=== PATIENT | female | born 1935 | race Caucasian/White ===

== ENCOUNTER 2018-03-26 15:40 | Inpatient (IN) | payer OTHER, MEDICARE ==
[~2018-03-26] VITALS: Ht 172.7 cm; Wt 81.2 kg
[~2018-03-26 15:40] MED LIST: AMLO10TA80 PO; HYDR25TA PO; LIP40 PO; METF-416 PO
[2018-03-26] MEDS ORDERED: SODIUM CHLORIDE 0.9% 1,000 ML IV ONE (16:37)
[2018-03-26 17:56] LABS: BASOPHILS % 0.1 % (0.0-2.0); HEMATOCRIT. 37.6 % (36.0-48.0); HEMOGLOBIN. 12.4 g/dL (12.0-16.0); LYMPHOCYTES % 27.9 % (20.0-50.0); MEAN CORPUSCULAR HEMOGLOBIN 31.7 pg (28.0-32.0); MEAN PLATELET VOLUME 8.3 fl (7.4-10.4); MONOCYTES % 4.1 % (2.0-8.0); NEUTROPHILS % 67.9 % (40.0-76.0); PLATELET 290 x1000/uL (130-400); RED BLOOD CELL COUNT 3.92 mill/uL (4.2-5.4); RED CELL DISTRIBUTION WIDTH 13.5 % (11.6-14.6)
[2018-03-26 18:04] LABS: CHLORIDE 100 mEq/L (98-107)
[2018-03-26 18:05] LABS: INR 1.1; PARTIAL THROMBOPLASTIN TIME 36.9 sec (23.4-31.0); PROTHROMBIN TIME 11.4 sec (9.1-11.1)
[2018-03-26 19:17] LABS: CREATINE KINASE MB FRACTION 1.7 ng/mL (0.5-3.6)
[2018-03-26] MEDS ORDERED: SODIUM CHLORIDE 0.9% 1,000 ML IV SCH (20:22)
[2018-03-26] MEDS ORDERED: ACETAMINOPHEN 325MG TABLET PO PRN (20:30)
[2018-03-26] MEDS ORDERED: HYDROCODONE/ACETAMINOPHEN 5/325MG TABLET PO PRN ×2 (20:30→21:30)
[2018-03-26] MEDS ORDERED: DOCUSATE SODIUM 100MG CAPSULE PO PRN (20:30)
[2018-03-26] MEDS ORDERED: LEVOFLOXACIN 500MG PREMIX 100 ML IV ONE (20:30)
[2018-03-26] MEDS ORDERED: ONDANSETRON HCL 4MG/2ML INJ IV PRN (20:30)
[2018-03-26] MEDS ORDERED: SODIUM CHLORIDE 0.9% 1000ML BAG (SEPSIS BOLUS) IV ONE (20:30)
[2018-03-27 05:40] LABS: BASOPHILS % 0.2 % (0.0-2.0); HEMOGLOBIN. 13.1 g/dL (12.0-16.0); LYMPHOCYTES % 30.1 % (20.0-50.0); MEAN CORPUSCULAR VOLUME 95.8 fL (81.0-99.0); MEAN PLATELET VOLUME 8.5 fl (7.4-10.4); NEUTROPHILS % 64.7 % (40.0-76.0); PLATELET 256 x1000/uL (130-400); RED BLOOD CELL COUNT 3.97 mill/uL (4.2-5.4); RED CELL DISTRIBUTION WIDTH 13.4 % (11.6-14.6)
[2018-03-27 05:50] LABS: CHLORIDE 104 mEq/L (98-107)
[2018-03-27 06:06] LABS: CREATINE KINASE 696 IU/L (26-192)
[2018-03-27] MEDS ORDERED: DEXT 5%/0.45% NACL KCL 20MEQ/L 1,000 ML IV ONE (07:00)
[2018-03-27] MEDS ORDERED: POTASSIUM CHLORIDE INJ 40 MEQ in DEXT 5% WATER 500 ML IV ONE (07:00)
[2018-03-27 08:30] VITALS: BP 141/70
[2018-03-27 09:30] VITALS: BP 141/70
[2018-03-27] MEDS: ENOXAPARIN 40MG/0.4ML SYR SUBCUT SCH (10:16)
[2018-03-27] MEDS ORDERED: DIATR MEGLU/DIATRIZOATE SOLN 30ML PO SCH (10:30)
[2018-03-27] MEDS ORDERED: MEMA5TAB7 PO (10:49)
[2018-03-27] MEDS ORDERED: LOSA1TAB37 PO (10:49)
[2018-03-27] MEDS ORDERED: LOSA50TA20 PO (10:49)
[2018-03-27] MEDS ORDERED: CLOP75TA15 PO (10:49)
[2018-03-27] MEDS ORDERED: OXCA150T29 PO (10:49)
[2018-03-27] MEDS ORDERED: METO-396 PO (10:49)
[2018-03-27] MEDS ORDERED: CLOP75TA33 PO (10:52)
[2018-03-27] MEDS ORDERED: ROSU5TAB PO (11:58)
[2018-03-27 12:00] VITALS: BP 144/65
[2018-03-27] MEDS ORDERED: DEXTROSE 50% WATER 50ML SYRINGE IV PRN (12:15)
[2018-03-27] MEDS: INSULIN LISPRO 100 UNITS/ML SUBCUT SCH ×3 (12:15→21:00)
[2018-03-27 13:05] LABS: T4 FREE 1.11 ng/dL (0.76-1.46)
[2018-03-27 16:00] VITALS: BP 140/59
[2018-03-27] MEDS: BLOOD SUGAR DIAGNOSTIC STRIP TEST SCH ×2 (16:40→21:13)
[2018-03-27 16:45] LABS: CREATINE KINASE MB FRACTION 4.9 ng/mL (0.5-3.6)
[2018-03-27] MEDS ORDERED: LEVOFLOXACIN 500MG PREMIX 100 ML IV SCH (18:00)
[2018-03-27] MEDS ORDERED: ACETAMINOPHEN 325MG TABLET PO PRN (19:30)
[2018-03-27 20:00] VITALS: BP 139/65
[2018-03-27] MEDS: IPRATROPIUM/ALBUTEROL 0.5-3(2.5)MG/3ML NEB HHN SCH (21:00)
[2018-03-27] MEDS: OXCARBAZEPINE 300MG TABLET PO SCH (21:03)
[2018-03-27] MEDS: THIAMINE HCL 100MG TABLET PO SCH (21:03)
[2018-03-27] MEDS: LEVOFLOXACIN 250MG PREMIX 50 ML IV SCH (21:04)
[2018-03-27] MEDS: PROMETHAZINE/DEXTROMETHORPHAN 6.25-15MG/5ML BOTTLE 120ML PO PRN (22:32)
[2018-03-28] VITALS: BP 125/70
[2018-03-28] MEDS ORDERED: IPRATROPIUM/ALBUTEROL 0.5-3(2.5)MG/3ML NEB HHN SCH
[2018-03-28] MEDS: IPRATROPIUM/ALBUTEROL 0.5-3(2.5)MG/3ML NEB HHN SCH ×6 (00:12→21:10)
[2018-03-28 04:00] VITALS: BP 152/68
[2018-03-28] MEDS: PROMETHAZINE/DEXTROMETHORPHAN 6.25-15MG/5ML BOTTLE 120ML PO PRN ×2 (05:26→20:38)
[2018-03-28 06:29] LABS: BASOPHILS % 0.2 % (0.0-2.0); EOSINOPHILS % 0.1 % (0.0-5.0); HEMATOCRIT. 34.6 % (36.0-48.0); HEMOGLOBIN. 11.6 g/dL (12.0-16.0); LYMPHOCYTES % 31.3 % (20.0-50.0); MEAN CORPUSCULAR HEMOGLOBIN 32.1 pg (28.0-32.0); MEAN CORPUSCULAR VOLUME 95.9 fL (81.0-99.0); NEUTROPHILS % 63.4 % (40.0-76.0); PLATELET 280 x1000/uL (130-400); RED BLOOD CELL COUNT 3.61 mill/uL (4.2-5.4); RED CELL DISTRIBUTION WIDTH 13.4 % (11.6-14.6)
[2018-03-28 06:33] LABS: CHLORIDE 102 mEq/L (98-107)
[2018-03-28 06:43] LABS: CREATINE KINASE 283 IU/L (26-192)
[2018-03-28 06:45] LABS: CREATINE KINASE MB FRACTION 2.9 ng/mL (0.5-3.6)
[2018-03-28] MEDS: INSULIN LISPRO 100 UNITS/ML SUBCUT SCH ×4 (06:52→20:36)
[2018-03-28] MEDS: BLOOD SUGAR DIAGNOSTIC STRIP TEST SCH ×4 (06:52→20:36)
[2018-03-28] MEDS: THIAMINE HCL 100MG TABLET PO SCH ×2 (09:35→17:00)
[2018-03-28] MEDS: ENOXAPARIN 40MG/0.4ML SYR SUBCUT SCH (09:35)
[2018-03-28] MEDS: OXCARBAZEPINE 300MG TABLET PO SCH ×2 (09:36→20:20)
[2018-03-28 20:00] VITALS: BP_SYST 144; BP_SYST 150; BP_DIAS 46; BP_DIAS 61
[2018-03-28] MEDS: LEVOFLOXACIN 250MG PREMIX 50 ML IV SCH (20:21)
[2018-03-29] VITALS: BP 137/43
[2018-03-29] MEDS: IPRATROPIUM/ALBUTEROL 0.5-3(2.5)MG/3ML NEB HHN SCH ×5 (01:56→22:01)
[2018-03-29 04:00] VITALS: BP 152/57
[2018-03-29] MEDS: INSULIN LISPRO 100 UNITS/ML SUBCUT SCH ×4 (05:54→20:31)
[2018-03-29] MEDS: BLOOD SUGAR DIAGNOSTIC STRIP TEST SCH ×4 (05:54→20:31)
[2018-03-29 06:29] LABS: BASOPHILS % 0.1 % (0.0-2.0); EOSINOPHILS % 0.1 % (0.0-5.0); HEMATOCRIT. 32.4 % (36.0-48.0); HEMOGLOBIN. 10.9 g/dL (12.0-16.0); LYMPHOCYTES % 27.8 % (20.0-50.0); MEAN CORPUSCULAR HEMOGLOBIN 32.1 pg (28.0-32.0); MEAN CORPUSCULAR VOLUME 95.1 fL (81.0-99.0); MEAN PLATELET VOLUME 7.5 fl (7.4-10.4); MONOCYTES % 4.7 % (2.0-8.0); NEUTROPHILS % 67.3 % (40.0-76.0); PLATELET 276 x1000/uL (130-400); RED CELL DISTRIBUTION WIDTH 13.5 % (11.6-14.6)
[2018-03-29 07:01] LABS: CHLORIDE 107 mEq/L (98-107)
[2018-03-29 08:00] VITALS: BP 141/46
[2018-03-29] MEDS: THIAMINE HCL 100MG TABLET PO SCH ×2 (08:49→18:23)
[2018-03-29] MEDS: OXCARBAZEPINE 300MG TABLET PO SCH ×2 (09:00→20:30)
[2018-03-29] MEDS ORDERED: POTASSIUM CHLORIDE 20MEQ/PACKET PO NR (09:00)
[2018-03-29] MEDS: ENOXAPARIN 40MG/0.4ML SYR SUBCUT SCH (09:01)
[2018-03-29 12:00] VITALS: BP 151/60
[2018-03-29 16:00] VITALS: BP 138/61
[2018-03-29 20:00] VITALS: BP 162/57
[2018-03-29] MEDS: LEVOFLOXACIN 250MG PREMIX 50 ML IV SCH (20:31)
[2018-03-30] VITALS (7 sets, daily range): BP systolic 133–160; BP diastolic 55–100
[2018-03-30] MEDS: IPRATROPIUM/ALBUTEROL 0.5-3(2.5)MG/3ML NEB HHN SCH ×5 (01:23→16:27)
[2018-03-30] MEDS: INSULIN LISPRO 100 UNITS/ML SUBCUT SCH ×3 (05:36→17:15)
[2018-03-30] MEDS: BLOOD SUGAR DIAGNOSTIC STRIP TEST SCH ×3 (05:36→17:17)
[2018-03-30] MEDS: PROMETHAZINE/DEXTROMETHORPHAN 6.25-15MG/5ML BOTTLE 120ML PO PRN (05:39)
[2018-03-30 06:11] LABS: BASOPHILS % 0.1 % (0.0-2.0); EOSINOPHILS % 0.6 % (0.0-5.0); HEMATOCRIT. 31.2 % (36.0-48.0); HEMOGLOBIN. 10.6 g/dL (12.0-16.0); LYMPHOCYTES % 28.9 % (20.0-50.0); MEAN CORPUSCULAR HEMOGLOBIN 32.4 pg (28.0-32.0); MEAN CORPUSCULAR VOLUME 95.6 fL (81.0-99.0); MEAN PLATELET VOLUME 7.7 fl (7.4-10.4); MONOCYTES % 4.7 % (2.0-8.0); NEUTROPHILS % 65.7 % (40.0-76.0); PLATELET 272 x1000/uL (130-400); RED BLOOD CELL COUNT 3.26 mill/uL (4.2-5.4); RED CELL DISTRIBUTION WIDTH 13.6 % (11.6-14.6)
[2018-03-30 06:35] LABS: CHLORIDE 106 mEq/L (98-107)
[2018-03-30] MEDS ORDERED: AMLODIPINE 5MG TABLET PO SCH (09:00)
[2018-03-30] MEDS ORDERED: POTASSIUM CHLORIDE 20MEQ/PACKET PO SCH (09:00)
[2018-03-30] MEDS: OXCARBAZEPINE 300MG TABLET PO SCH (10:28)
[2018-03-30] MEDS: THIAMINE HCL 100MG TABLET PO SCH ×2 (10:28→17:45)
[2018-03-30] MEDS: ENOXAPARIN 40MG/0.4ML SYR SUBCUT SCH (10:29)
[2018-03-30] MEDS ORDERED: LEVOFLOXACIN 250MG TABLET PO SCH (21:00)
== END 2018-03-30 18:35 | disposition home health service (06) | DRG 73 ==
LOC: ER 15:40 → EDBEDREQ 17:42 → EDBEDREQSVC 17:42 → 5WST 20:39 → EDBEDREQTM 20:45 → EDBEDREQ 20:45 → ENRESERV 03-27 07:11
PROVIDERS: ADMIT Internal Medicine Nephrology; ATTEND Internal Medicine Nephrology
DX: G90.8 Other disorders of autonomic nervous system (principal); E43 Unspecified severe protein-calorie malnutrition; J18.0 Bronchopneumonia, unspecified organism; E87.2 Acidosis; J98.11 Atelectasis; M62.82 Rhabdomyolysis; R65.10 Systemic inflammatory response syndrome (SIRS) of non-infectious origin without acute organ dysfunction; G40.909 Epilepsy, unspecified, not intractable, without status epilepticus; E11.9 Type 2 diabetes mellitus without complications; E78.5 Hyperlipidemia, unspecified; E87.6 Hypokalemia; F03.90 Unspecified dementia, unspecified severity, without behavioral disturbance, psychotic disturbance, mood disturbance, and anxiety; I25.10 Atherosclerotic heart disease of native coronary artery without angina pectoris; I35.0 Nonrheumatic aortic (valve) stenosis; I10 Essential (primary) hypertension; J01.90 Acute sinusitis, unspecified; W18.39XA Other fall on same level, initial encounter; I95.9 Hypotension, unspecified; R74.0 Nonspecific elevation of levels of transaminase and lactic acid dehydrogenase [LDH]; M13.0 Polyarthritis, unspecified; Z79.899 Other long term (current) drug therapy; Z88.0 Allergy status to penicillin; Z90.710 Acquired absence of both cervix and uterus; Z95.5 Presence of coronary angioplasty implant and graft; Y93.89 Activity, other specified; Y92.89 Other specified places as the place of occurrence of the external cause; Y99.8 Other external cause status; Z68.27 Body mass index [BMI] 27.0-27.9, adult
CPT/HCPCS: 36415; 71045; 72170; 74176; 76700; 80048; 80061; 82550; 82553; 82962; 83036; 83605; 83735; 83880; 84100; 84132; 84145; 84439; 84443; 84484; 85379; 86850; 86900; 87804; 93005; 93306; 93880; 93970; 94640; 96361; 96365; 96366; 97116; 97162; 97166; 99285; C1893; J1650; J1956; J3480; J7030; J7050; J7060; J7620; Q9963

== ENCOUNTER 2018-05-15 08:07 | Inpatient (IN) | payer MEDICARE ==
[~2018-05-15] VITALS: Ht 172.7 cm; Wt 82.2 kg
[~2018-05-15 08:07] MED LIST changes: +CLOP75TA33 PO; -HYDR25TA PO; -LIP40 PO; +LOSA1TAB37 PO; +MEMA5TAB7 PO; -METF-416 PO; +METO-396 PO; +OXCA150T29 PO; +ROSU5TAB PO
[2018-05-15] MEDS ORDERED: SODIUM CHLORIDE 0.9% 1000ML BAG (SEPSIS BOLUS) IV ONE (08:30)
[2018-05-15 08:48] LABS: BASOPHILS % 0.2 % (0.0-2.0); HEMATOCRIT. 38.6 % (36.0-48.0); HEMOGLOBIN. 12.9 g/dL (12.0-16.0); LYMPHOCYTES % 25.6 % (20.0-50.0); MEAN CORPUSCULAR VOLUME 95.5 fL (81.0-99.0); MEAN PLATELET VOLUME 8.7 fl (7.4-10.4); MONOCYTES % 2.5 % (2.0-8.0); NEUTROPHILS % 71.7 % (40.0-76.0); PLATELET 207 x1000/uL (130-400); RED BLOOD CELL COUNT 4.04 mill/uL (4.2-5.4); RED CELL DISTRIBUTION WIDTH 14.5 % (11.6-14.6)
[2018-05-15 08:52] LABS: CHLORIDE 107 mEq/L (98-107)
[2018-05-15 08:53] LABS: INR 1.1; PROTHROMBIN TIME 11.1 sec (9.6-11.0)
[2018-05-15] MEDS ORDERED: MEROPENEM 1,000 MG in SODIUM CHLORIDE 0.9% 100 ML IV ONE (09:15)
[2018-05-15] MEDS ORDERED: VANCOMYCIN 1 G PREMIX 200 ML IV ONE (09:15)
[2018-05-15] MEDS ORDERED: LEVOFLOXACIN 500MG PREMIX 100 ML IV SCH ×3 (11:00→20:00)
[2018-05-15] MEDS ORDERED: ACETAMINOPHEN 325MG TABLET PO PRN (11:00)
[2018-05-15] MEDS ORDERED: ONDANSETRON HCL 4MG/2ML INJ IV PRN (11:00)
[2018-05-15] MEDS ORDERED: HYDROMORPHONE HCL/PF 2MG/ML CPJ IV PRN (11:00)
[2018-05-15] MEDS ORDERED: CLONIDINE 0.1MG TABLET PO PRN (11:00)
[2018-05-15 11:40] LABS: CLARITY URINE CLOUDY (CLEAR); COLOR URINE YELLOW (YELLOW); KETONES URINE NEGATIVE (NEGATIVE); LEUKOCYTE ESTERASE URINE 3+ (NEGATIVE); NITRITE URINE POSITIVE (NEGATIVE); OCCULT BLOOD URINE 1+ (NEGATIVE); PH URINE 5.5 (4.5-8.0); PROTEIN URINE 1+ (NEGATIVE); SPECIFIC GRAVITY URINE 1.014 (1.005-1.030); UROBILINOGEN URINE 0.2 E.U./dL (0.2-1.0)
[2018-05-15] MEDS: PANTOPRAZOLE SODIUM 40 MG/VIAL IV SCH (13:07)
[2018-05-15] MEDS: DEXT 5%/0.45% NACL 1000ML 1,000 ML IV SCH (13:14)
[2018-05-15] MEDS ORDERED: LORAZEPAM 2MG/ML CPJ IV PRN (19:45)
[2018-05-15 20:00] VITALS: BP 157/63
[2018-05-15] MEDS ORDERED: POTASSIUM CHLORIDE INJ 40 MEQ in DEXT 5% WATER 250 ML IV SCH (20:00)
[2018-05-15 20:05] VITALS: BP 157/63
[2018-05-15] MEDS: IPRATROPIUM/ALBUTEROL 0.5-3(2.5)MG/3ML NEB INH SCH (21:57)
[2018-05-15 22:00] VITALS: BP 132/61
[2018-05-15] MEDS: ENOXAPARIN 40MG/0.4ML SYR SUBCUT SCH (22:01)
[2018-05-15] MEDS: OXCARBAZEPINE 300MG TABLET PO SCH (22:02)
[2018-05-16] VITALS (12 sets, daily range): BP systolic 128–162; BP diastolic 48–129
[2018-05-16] MEDS: DEXT 5%/0.45% NACL 1000ML 1,000 ML IV SCH ×2 (01:07→18:33)
[2018-05-16] MEDS: IPRATROPIUM/ALBUTEROL 0.5-3(2.5)MG/3ML NEB INH SCH ×3 (01:56→21:39)
[2018-05-16] MEDS: VANCOMYCIN 1 G PREMIX 200 ML IV SCH ×2 (04:50→22:43)
[2018-05-16 07:00] LABS: CHLORIDE 108 mEq/L (98-107)
[2018-05-16 07:15] LABS: BASOPHILS % 0.3 % (0.0-2.0); EOSINOPHILS % 0.1 % (0.0-5.0); HEMATOCRIT. 33.9 % (36.0-48.0); HEMOGLOBIN. 11.6 g/dL (12.0-16.0); LYMPHOCYTES % 24.5 % (20.0-50.0); MEAN CORPUSCULAR HEMOGLOBIN 32.8 pg (28.0-32.0); MEAN CORPUSCULAR VOLUME 95.8 fL (81.0-99.0); MEAN PLATELET VOLUME 8.7 fl (7.4-10.4); NEUTROPHILS % 70.1 % (40.0-76.0); PLATELET 156 x1000/uL (130-400); RED BLOOD CELL COUNT 3.54 mill/uL (4.2-5.4); RED CELL DISTRIBUTION WIDTH 14.6 % (11.6-14.6)
[2018-05-16 07:18] LABS: LDL CHOLESTEROL 37 mg/dL (5-100)
[2018-05-16 07:19] LABS: HDL CHOLESTEROL 54 mg/dL (40-59)
[2018-05-16] MEDS ORDERED: PNEUMOCOCCAL 23-VAL P-SAC VAC 0.5 ML IM ONE (08:00)
[2018-05-16] MEDS ORDERED: POTASSIUM CHLORIDE 20MEQ/PACKET PO NR (08:15)
[2018-05-16] MEDS: MEMANTINE HCL 5MG TABLET PO SCH (09:27)
[2018-05-16] MEDS: PANTOPRAZOLE SODIUM 40 MG/VIAL IV SCH (09:27)
[2018-05-16] MEDS: METOPROLOL TARTRATE 25MG TABLET PO SCH (09:29)
[2018-05-16] MEDS: LOSARTAN POTASSIUM 100 MG TABLET PO SCH (09:30)
[2018-05-16] MEDS: OXCARBAZEPINE 300MG TABLET PO SCH ×2 (09:30→21:12)
[2018-05-16] MEDS: AMLODIPINE 10MG TABLET PO SCH (09:30)
[2018-05-16] MEDS: CLOPIDOGREL 75MG TABLET PO SCH (09:30)
[2018-05-16 13:54] LABS: T4 FREE 0.86 ng/dL (0.76-1.46)
[2018-05-16 13:57] LABS: CREATINE KINASE MB FRACTION 1.9 ng/mL (0.5-3.6)
[2018-05-16] MEDS: LEVOFLOXACIN 250MG PREMIX 50 ML IV SCH (20:13)
[2018-05-16] MEDS: ENOXAPARIN 40MG/0.4ML SYR SUBCUT SCH (20:13)
[2018-05-16] MEDS ORDERED: ATORVASTATIN CALCIUM 10MG TABLET PO SCH (21:00)
[2018-05-16 23:54] LABS: CREATINE KINASE MB FRACTION 1.1 ng/mL (0.5-3.6)
[2018-05-17] VITALS (15 sets, daily range): BP systolic 122–198; BP diastolic 53–98
[2018-05-17] MEDS: DEXT 5%/0.45% NACL 1000ML 1,000 ML IV SCH ×2 (02:54→21:26)
[2018-05-17] MEDS: IPRATROPIUM/ALBUTEROL 0.5-3(2.5)MG/3ML NEB INH SCH ×4 (03:33→20:43)
[2018-05-17 06:30] LABS: CHLORIDE 108 mEq/L (98-107)
[2018-05-17 06:31] LABS: BASOPHILS % 0.3 % (0.0-2.0); EOSINOPHILS % 0.4 % (0.0-5.0); HEMATOCRIT. 36.9 % (36.0-48.0); HEMOGLOBIN. 12.4 g/dL (12.0-16.0); LYMPHOCYTES % 33.3 % (20.0-50.0); MEAN CORPUSCULAR HEMOGLOBIN 32.1 pg (28.0-32.0); MEAN CORPUSCULAR VOLUME 95.4 fL (81.0-99.0); MEAN PLATELET VOLUME 9.1 fl (7.4-10.4); PLATELET 148 x1000/uL (130-400); RED BLOOD CELL COUNT 3.87 mill/uL (4.2-5.4); RED CELL DISTRIBUTION WIDTH 14.3 % (11.6-14.6)
[2018-05-17 06:52] LABS: CREATINE KINASE MB FRACTION 1.1 ng/mL (0.5-3.6)
[2018-05-17 07:04] LABS: CREATINE KINASE 1753 IU/L (26-192)
[2018-05-17] MEDS: METOPROLOL TARTRATE 25MG TABLET PO SCH (09:20)
[2018-05-17] MEDS: LOSARTAN POTASSIUM 100 MG TABLET PO SCH (09:20)
[2018-05-17] MEDS: POTASSIUM CHLORIDE 20MEQ/PACKET PO SCH (09:20)
[2018-05-17] MEDS: FAMOTIDINE 20MG TABLET PO SCH ×2 (09:20→21:25)
[2018-05-17] MEDS: AMLODIPINE 10MG TABLET PO SCH (09:20)
[2018-05-17] MEDS: OXCARBAZEPINE 300MG TABLET PO SCH ×2 (09:21→21:25)
[2018-05-17] MEDS: MEMANTINE HCL 5MG TABLET PO SCH (09:21)
[2018-05-17] MEDS: CLOPIDOGREL 75MG TABLET PO SCH (09:21)
[2018-05-17] MEDS ORDERED: POTASSIUM PHOS,M-BASIC-D-BASIC 10 MMOL in DEXT 5% WATER 246.6667 ML IV ONE (10:00)
[2018-05-17] MEDS ORDERED: MAGNESIUM 2 G PREMIX 50 ML IV NR (12:00)
[2018-05-17] MEDS: LEVOFLOXACIN 250MG PREMIX 50 ML IV SCH (20:09)
[2018-05-17] MEDS: ENOXAPARIN 40MG/0.4ML SYR SUBCUT SCH (20:09)
[2018-05-18] VITALS (14 sets, daily range): BP systolic 140–185; BP diastolic 34–98
[2018-05-18] MEDS: IPRATROPIUM/ALBUTEROL 0.5-3(2.5)MG/3ML NEB INH SCH ×4 (00:34→21:11)
[2018-05-18] MEDS: VANCOMYCIN 1 G PREMIX 200 ML IV SCH ×2 (04:55→17:03)
[2018-05-18 06:51] LABS: BASOPHILS % 0.5 % (0.0-2.0); EOSINOPHILS % 1.7 % (0.0-5.0); HEMATOCRIT. 36.5 % (36.0-48.0); HEMOGLOBIN. 12.3 g/dL (12.0-16.0); LYMPHOCYTES % 27.6 % (20.0-50.0); MEAN CORPUSCULAR VOLUME 94.9 fL (81.0-99.0); MEAN PLATELET VOLUME 8.9 fl (7.4-10.4); NEUTROPHILS % 64.2 % (40.0-76.0); PLATELET 144 x1000/uL (130-400); RED BLOOD CELL COUNT 3.84 mill/uL (4.2-5.4); RED CELL DISTRIBUTION WIDTH 14.2 % (11.6-14.6)
[2018-05-18 07:11] LABS: CHLORIDE 108 mEq/L (98-107)
[2018-05-18 07:27] LABS: PHOSPHORUS 2.6 mg/dL (2.5-4.9)
[2018-05-18] MEDS ORDERED: SORBITOL 70% SOLN 30ML PO SCH (07:30)
[2018-05-18] MEDS: POTASSIUM CHLORIDE 20MEQ/PACKET PO SCH ×3 (09:00→17:20)
[2018-05-18] MEDS: LOSARTAN POTASSIUM 100 MG TABLET PO SCH (09:45)
[2018-05-18] MEDS: MEMANTINE HCL 5MG TABLET PO SCH (09:46)
[2018-05-18] MEDS: METOPROLOL TARTRATE 25MG TABLET PO SCH (09:46)
[2018-05-18] MEDS: FAMOTIDINE 20MG TABLET PO SCH ×2 (09:47→21:42)
[2018-05-18] MEDS: CLOPIDOGREL 75MG TABLET PO SCH (09:47)
[2018-05-18] MEDS: AMLODIPINE 10MG TABLET PO SCH (09:47)
[2018-05-18] MEDS: OXCARBAZEPINE 300MG TABLET PO SCH ×2 (09:48→21:42)
[2018-05-18] MEDS: DOCUSATE SODIUM 100MG CAPSULE PO PRN (09:51)
[2018-05-18] MEDS: DEXT 5%/0.45% NACL 1000ML 1,000 ML IV SCH (10:09)
[2018-05-18 11:29] LABS: CREATINE KINASE 1727 IU/L (26-192)
[2018-05-18] MEDS ORDERED: BISACODYL 10MG SUPP PR SCH (11:45)
[2018-05-18] MEDS: ENOXAPARIN 40MG/0.4ML SYR SUBCUT SCH (20:00)
[2018-05-19] VITALS (15 sets, daily range): BP systolic 129–174; BP diastolic 55–76
[2018-05-19] MEDS: VANCOMYCIN 1 G PREMIX 200 ML IV SCH (02:00)
[2018-05-19] MEDS: IPRATROPIUM/ALBUTEROL 0.5-3(2.5)MG/3ML NEB INH SCH ×5 (02:09→20:20)
[2018-05-19] MEDS: DEXT 5%/0.45% NACL 1000ML 1,000 ML IV SCH ×4 (04:13→20:53)
[2018-05-19 05:25] LABS: BASOPHILS % 0.2 % (0.0-2.0); EOSINOPHILS % 0.9 % (0.0-5.0); HEMATOCRIT. 39.9 % (36.0-48.0); HEMOGLOBIN. 13.4 g/dL (12.0-16.0); LYMPHOCYTES % 27.5 % (20.0-50.0); MEAN CORPUSCULAR HEMOGLOBIN 32.2 pg (28.0-32.0); MEAN CORPUSCULAR VOLUME 95.7 fL (81.0-99.0); MEAN PLATELET VOLUME 8.9 fl (7.4-10.4); MONOCYTES % 5.2 % (2.0-8.0); NEUTROPHILS % 66.2 % (40.0-76.0); PLATELET 157 x1000/uL (130-400); RED BLOOD CELL COUNT 4.17 mill/uL (4.2-5.4)
[2018-05-19 06:52] LABS: CHLORIDE 106 mEq/L (98-107)
[2018-05-19 07:03] LABS: CREATINE KINASE 855 IU/L (26-192)
[2018-05-19] MEDS: POTASSIUM CHLORIDE 20MEQ/PACKET PO SCH ×2 (07:45→16:56)
[2018-05-19] MEDS: LOSARTAN POTASSIUM 100 MG TABLET PO SCH (07:45)
[2018-05-19] MEDS: MEMANTINE HCL 5MG TABLET PO SCH (07:46)
[2018-05-19] MEDS: CLOPIDOGREL 75MG TABLET PO SCH (07:46)
[2018-05-19] MEDS: OXCARBAZEPINE 300MG TABLET PO SCH ×2 (07:46→21:12)
[2018-05-19] MEDS: AMLODIPINE 10MG TABLET PO SCH (07:46)
[2018-05-19] MEDS: FAMOTIDINE 20MG TABLET PO SCH ×2 (07:46→21:12)
[2018-05-19] MEDS: DOCUSATE SODIUM 100MG CAPSULE PO PRN (07:46)
[2018-05-19] MEDS: METOPROLOL TARTRATE 25MG TABLET PO SCH (07:47)
[2018-05-19] MEDS: ENOXAPARIN 40MG/0.4ML SYR SUBCUT SCH (21:12)
[2018-05-19] MEDS: SULFAMETHOXAZOLE/TRIMETHOPRIM 800/160MG TABLET PO SCH (21:12)
[2018-05-20] VITALS (16 sets, daily range): BP systolic 127–176; BP diastolic 51–83
[2018-05-20] MEDS: IPRATROPIUM/ALBUTEROL 0.5-3(2.5)MG/3ML NEB INH SCH ×4 (02:22→20:28)
[2018-05-20] MEDS: DEXT 5%/0.45% NACL 1000ML 1,000 ML IV SCH ×3 (04:34→20:53)
[2018-05-20 06:29] LABS: BASOPHILS % 0.7 % (0.0-2.0); EOSINOPHILS % 2.1 % (0.0-5.0); HEMATOCRIT. 36.2 % (36.0-48.0); LYMPHOCYTES % 37.2 % (20.0-50.0); MEAN CORPUSCULAR VOLUME 96.4 fL (81.0-99.0); MONOCYTES % 6.5 % (2.0-8.0); NEUTROPHILS % 53.5 % (40.0-76.0); PLATELET 165 x1000/uL (130-400); RED BLOOD CELL COUNT 3.76 mill/uL (4.2-5.4); RED CELL DISTRIBUTION WIDTH 14.2 % (11.6-14.6)
[2018-05-20] MEDS: SULFAMETHOXAZOLE/TRIMETHOPRIM 800/160MG TABLET PO SCH ×2 (08:45→20:24)
[2018-05-20] MEDS: CLOPIDOGREL 75MG TABLET PO SCH (08:45)
[2018-05-20] MEDS: MEMANTINE HCL 5MG TABLET PO SCH (08:45)
[2018-05-20] MEDS: POTASSIUM CHLORIDE 20MEQ/PACKET PO SCH ×2 (08:46→17:02)
[2018-05-20] MEDS: OXCARBAZEPINE 300MG TABLET PO SCH ×2 (08:46→20:26)
[2018-05-20] MEDS: METOPROLOL TARTRATE 25MG TABLET PO SCH (08:47)
[2018-05-20] MEDS: AMLODIPINE 10MG TABLET PO SCH (08:47)
[2018-05-20] MEDS: FAMOTIDINE 20MG TABLET PO SCH ×2 (08:47→20:24)
[2018-05-20] MEDS: LOSARTAN POTASSIUM 100 MG TABLET PO SCH (08:47)
[2018-05-20] MEDS: ENOXAPARIN 40MG/0.4ML SYR SUBCUT SCH (20:23)
[2018-05-21] VITALS (12 sets, daily range): BP systolic 93–163; BP diastolic 53–77
[2018-05-21] MEDS: IPRATROPIUM/ALBUTEROL 0.5-3(2.5)MG/3ML NEB INH SCH ×2 (00:56→15:45)
[2018-05-21] MEDS: DEXT 5%/0.45% NACL 1000ML 1,000 ML IV SCH (04:52)
[2018-05-21] MEDS: CLOPIDOGREL 75MG TABLET PO SCH (08:43)
[2018-05-21] MEDS: POTASSIUM CHLORIDE 20MEQ/PACKET PO SCH ×2 (08:43→16:46)
[2018-05-21] MEDS: FAMOTIDINE 20MG TABLET PO SCH ×2 (08:43→20:04)
[2018-05-21] MEDS: AMLODIPINE 10MG TABLET PO SCH (08:45)
[2018-05-21] MEDS: MEMANTINE HCL 5MG TABLET PO SCH (08:45)
[2018-05-21] MEDS: LOSARTAN POTASSIUM 100 MG TABLET PO SCH (08:45)
[2018-05-21] MEDS: METOPROLOL TARTRATE 25MG TABLET PO SCH (08:45)
[2018-05-21] MEDS: OXCARBAZEPINE 300MG TABLET PO SCH ×2 (08:46→20:05)
[2018-05-21] MEDS ORDERED: LACTULOSE 20G/30ML UDC PO PRN (09:00)
[2018-05-21] MEDS: ENOXAPARIN 40MG/0.4ML SYR SUBCUT SCH (20:04)
[2018-05-22] VITALS (7 sets, daily range): BP systolic 109–168; BP diastolic 55–88
[2018-05-22 06:33] LABS: BASOPHILS % 0.7 % (0.0-2.0); HEMATOCRIT. 35.5 % (36.0-48.0); LYMPHOCYTES % 41.1 % (20.0-50.0); MEAN CORPUSCULAR HEMOGLOBIN 32.5 pg (28.0-32.0); MEAN CORPUSCULAR VOLUME 96.3 fL (81.0-99.0); MEAN PLATELET VOLUME 8.9 fl (7.4-10.4); MONOCYTES % 7.6 % (2.0-8.0); NEUTROPHILS % 48.6 % (40.0-76.0); PLATELET 185 x1000/uL (130-400); RED BLOOD CELL COUNT 3.68 mill/uL (4.2-5.4); RED CELL DISTRIBUTION WIDTH 14.6 % (11.6-14.6)
[2018-05-22] MEDS: POTASSIUM CHLORIDE 20MEQ/PACKET PO SCH (08:00)
[2018-05-22] MEDS: LOSARTAN POTASSIUM 100 MG TABLET PO SCH (09:06)
[2018-05-22] MEDS: CLOPIDOGREL 75MG TABLET PO SCH (09:06)
[2018-05-22] MEDS: METOPROLOL TARTRATE 25MG TABLET PO SCH (09:07)
[2018-05-22] MEDS: OXCARBAZEPINE 300MG TABLET PO SCH ×2 (09:07→20:44)
[2018-05-22] MEDS: MEMANTINE HCL 5MG TABLET PO SCH (09:07)
[2018-05-22] MEDS: FAMOTIDINE 20MG TABLET PO SCH (09:07)
[2018-05-22] MEDS: AMLODIPINE 10MG TABLET PO SCH (09:08)
[2018-05-22] MEDS: IPRATROPIUM/ALBUTEROL 0.5-3(2.5)MG/3ML NEB INH SCH ×3 (09:45→20:54)
[2018-05-22] MEDS: ENOXAPARIN 40MG/0.4ML SYR SUBCUT SCH (20:44)
[2018-05-23] MEDS: IPRATROPIUM/ALBUTEROL 0.5-3(2.5)MG/3ML NEB INH SCH ×4 (02:06→20:57)
[2018-05-23 04:00] VITALS: BP 136/80
[2018-05-23 08:00] VITALS: BP 130/68
[2018-05-23] MEDS: METOPROLOL TARTRATE 25MG TABLET PO SCH (08:50)
[2018-05-23] MEDS: AMLODIPINE 10MG TABLET PO SCH (09:01)
[2018-05-23] MEDS: MEMANTINE HCL 5MG TABLET PO SCH (09:01)
[2018-05-23] MEDS: CLOPIDOGREL 75MG TABLET PO SCH (09:01)
[2018-05-23] MEDS: LOSARTAN POTASSIUM 100 MG TABLET PO SCH (09:01)
[2018-05-23] MEDS: FAMOTIDINE 20MG TABLET PO SCH (09:01)
[2018-05-23] MEDS: OXCARBAZEPINE 300MG TABLET PO SCH ×2 (09:07→20:20)
[2018-05-23 20:00] VITALS: BP 105/67
[2018-05-23] MEDS: ENOXAPARIN 40MG/0.4ML SYR SUBCUT SCH (20:20)
[2018-05-23 22:50] VITALS: BP 135/51
[2018-05-24] VITALS (7 sets, daily range): BP systolic 104–152; BP diastolic 50–100
[2018-05-24] MEDS: IPRATROPIUM/ALBUTEROL 0.5-3(2.5)MG/3ML NEB INH SCH ×2 (02:00→19:56)
[2018-05-24] MEDS: AMLODIPINE 10MG TABLET PO SCH (09:20)
[2018-05-24] MEDS: MEMANTINE HCL 5MG TABLET PO SCH (09:20)
[2018-05-24] MEDS: FAMOTIDINE 20MG TABLET PO SCH (09:21)
[2018-05-24] MEDS: CLOPIDOGREL 75MG TABLET PO SCH (09:21)
[2018-05-24] MEDS: OXCARBAZEPINE 300MG TABLET PO SCH ×2 (09:21→20:37)
[2018-05-24] MEDS: LOSARTAN POTASSIUM 100 MG TABLET PO SCH (09:21)
[2018-05-24] MEDS: ENOXAPARIN 40MG/0.4ML SYR SUBCUT SCH (20:36)
== END 2018-05-24 22:00 | DRG 871 ==
LOC: ER 08:33 → 3WST 10:35 → EDBEDREQTM 10:36 → EDBEDREQ 10:36 → ENRESERV 14:24 → CANRESERV 14:24 → ENRESERV 17:57 → 3WST 19:54 → 8WST 05-22 00:09
PROVIDERS: ADMIT Internal Medicine Nephrology; ATTEND Internal Medicine Nephrology
PROC: 4A00X4Z Measurement of Central Nervous Electrical Activity, External Approach (ICD-10-PCS; principal; 2018-05-20)
DX: A41.9 Sepsis, unspecified organism (principal); G93.41 Metabolic encephalopathy; N39.0 Urinary tract infection, site not specified; B95.7 Other staphylococcus as the cause of diseases classified elsewhere; G40.909 Epilepsy, unspecified, not intractable, without status epilepticus; E86.9 Volume depletion, unspecified; F03.90 Unspecified dementia, unspecified severity, without behavioral disturbance, psychotic disturbance, mood disturbance, and anxiety; Z60.2 Problems related to living alone; I10 Essential (primary) hypertension; Z86.73 Personal history of transient ischemic attack (TIA), and cerebral infarction without residual deficits; Z88.0 Allergy status to penicillin; Z79.899 Other long term (current) drug therapy
CPT/HCPCS: 36415; 71045; 74176; 80048; 80061; 80202; 82550; 82553; 82962; 83036; 83605; 83735; 83880; 84100; 84132; 84145; 84439; 84443; 84484; 85379; 85651; 86140; 87077; 87186; 93005; 93306; 93970; 94640; 96365; 97116; 97162; 97166; 97530; 99291; C9113; J1650; J1956; J2185; J3370; J3475; J3480; J3490; J7030; J7040; J7050; J7060; J7620; A4315

== ENCOUNTER 2018-09-05 11:18 | Emergency (ER) | payer MEDICARE ==
[~2018-09-05] VITALS: Ht 160 cm; Wt 75.0 kg
[~2018-09-05 11:18] MED LIST changes: -LOSA1TAB37 PO; -ROSU5TAB PO
[2018-09-05] MEDS ORDERED: LEVOFLOXACIN 500MG PREMIX 100 ML IV ONE (11:30)
[2018-09-05] MEDS ORDERED: SODIUM CHLORIDE 0.9% 1,000 ML IV ONE (11:30)
[2018-09-05] MEDS ORDERED: CLINDAMYCIN 300 MG in DEXTROSE 5% WATER 50 ML IV ONE (11:45)
[2018-09-05 12:13] LABS: BASOPHILS % 0.4 % (0.0-2.0); EOSINOPHILS % 0.6 % (0.0-5.0); HEMOGLOBIN. 13.2 g/dL (12.0-16.0); LYMPHOCYTES % 36.1 % (20.0-50.0); MEAN CORPUSCULAR HEMOGLOBIN 32.4 pg (28.0-32.0); MEAN CORPUSCULAR VOLUME 95.9 fL (81.0-99.0); MEAN PLATELET VOLUME 8.8 fl (7.4-10.4); NEUTROPHILS % 56.9 % (40.0-76.0); PLATELET 201 x1000/uL (130-400); RED BLOOD CELL COUNT 4.06 mill/uL (4.2-5.4); RED CELL DISTRIBUTION WIDTH 14.1 % (11.6-14.6)
[2018-09-05 12:31] LABS: CHLORIDE 106 mEq/L (98-107); PROTHROMBIN TIME 10.5 sec (9.6-11.0)
[2018-09-05] MEDS ORDERED: SULFAMETHOXAZOLE/TRIMETHOPRIM 800/160MG TABLET PO ONE (13:15)
[2018-09-05 13:39] VITALS: BP 136/68
== END 2018-09-05 13:39 | disposition home or self-care (01) ==
LOC: ER 11:18
DX: L03.211 Cellulitis of face (principal); F03.90 Unspecified dementia, unspecified severity, without behavioral disturbance, psychotic disturbance, mood disturbance, and anxiety; I10 Essential (primary) hypertension; Z86.73 Personal history of transient ischemic attack (TIA), and cerebral infarction without residual deficits; Z88.0 Allergy status to penicillin; Z79.899 Other long term (current) drug therapy; W01.10XA Fall on same level from slipping, tripping and stumbling with subsequent striking against unspecified object, initial encounter; Y93.89 Activity, other specified; Y92.89 Other specified places as the place of occurrence of the external cause; Y99.8 Other external cause status
CPT/HCPCS: 36415; 80053; 85025; 85610; 87040; 93005; 96365; 99284; J3490; J7030; J7060

== ENCOUNTER → 2019-01-08 | Outpatient (CLI) | payer MEDICARE | END | disposition home or self-care (01) | LOC: RAD 12:40 | PROVIDERS: ATTEND Family Medicine | DX: J18.9 Pneumonia, unspecified organism (principal) | CPT/HCPCS: 71046 ==

== ENCOUNTER 2019-03-10 09:32 | Inpatient (IN) | payer MEDICARE ==
[~2019-03-10] VITALS: Ht 160 cm; Wt 70.8 kg
[2019-03-10 10:18] LABS: BASOPHILS % 0.3 % (0.0-2.0); HEMOGLOBIN. 13.9 g/dL (12.0-16.0); LYMPHOCYTES % 31.5 % (20.0-50.0); MEAN CORPUSCULAR HEMOGLOBIN 32.2 pg (28.0-32.0); MEAN CORPUSCULAR VOLUME 96.8 fL (81.0-99.0); MEAN PLATELET VOLUME 9.1 fl (7.4-10.4); MONOCYTES % 2.6 % (2.0-8.0); NEUTROPHILS % 65.6 % (40.0-76.0); PLATELET 206 x1000/uL (130-400); RED BLOOD CELL COUNT 4.34 mill/uL (4.2-5.4); RED CELL DISTRIBUTION WIDTH 13.5 % (11.6-14.6)
[2019-03-10 10:25] LABS: CHLORIDE 106 mEq/L (98-107); PROTHROMBIN TIME 10.7 sec (9.6-11.0)
[2019-03-10 10:29] LABS: ETHANOL BLOOD < 10 mg/dL
[2019-03-10 10:32] LABS: LDL CHOLESTEROL 57 mg/dL (5-100)
[2019-03-10] MEDS ORDERED: ASPIRIN 325MG TABLET PO ONE (12:15)
[2019-03-10] MEDS ORDERED: LORAZEPAM 0.5MG TABLET PO ONE (12:45)
[2019-03-10 14:23] LABS: CLARITY URINE CLOUDY (CLEAR); COLOR URINE YELLOW (YELLOW); KETONES URINE NEGATIVE (NEGATIVE); LEUKOCYTE ESTERASE URINE TRACE (NEGATIVE); NITRITE URINE NEGATIVE (NEGATIVE); OCCULT BLOOD URINE NEGATIVE (NEGATIVE); PROTEIN URINE TRACE (NEGATIVE); SPECIFIC GRAVITY URINE 1.015 (1.005-1.030); UROBILINOGEN URINE 0.2 E.U./dL (0.2-1.0)
[2019-03-10] MEDS ORDERED: ACETAMINOPHEN 325MG TABLET PO PRN (15:00)
[2019-03-10] MEDS ORDERED: CLONIDINE 0.1MG TABLET PO PRN (15:00)
[2019-03-10] MEDS ORDERED: DOCUSATE SODIUM 100MG CAPSULE PO PRN (15:00)
[2019-03-10] MEDS ORDERED: ONDANSETRON HCL 4MG/2ML INJ IV PRN (15:00)
[2019-03-10 15:03] LABS: OPIATES URINE SCREEN NEGATIVE (NEGATIVE)
[2019-03-10 15:04] LABS: *AMPHETAMINES SCREEN URINE NEGATIVE (NEGATIVE); CANNABINOID URINE SCREEN NEGATIVE (NEGATIVE); PHENCYCLIDINE URINE SCREEN NEGATIVE (NEGATIVE)
[2019-03-10 15:06] LABS: *BENZODIAZEPINES SCREEN URINE NEGATIVE (NEGATIVE)
[2019-03-10 15:07] LABS: *BARBITURATES SCREEN URINE NEGATIVE (NEGATIVE)
[2019-03-10 15:09] LABS: *COCAINE SCREEN URINE NEGATIVE (NEGATIVE); METHADONE URINE SCREEN NEGATIVE (NEGATIVE)
[2019-03-10 15:10] VITALS: BP 156/48
[2019-03-10 17:58] VITALS: BP 156/48
[2019-03-10] MEDS ORDERED: PNEUMOCOCCAL 23-VAL P-SAC VAC 0.5 ML IM ONE (18:15)
[2019-03-10 20:00] VITALS: BP 137/44
[2019-03-10] MEDS ORDERED: LEVOFLOXACIN 500MG PREMIX 100 ML IV SCH (20:00)
[2019-03-10] MEDS ORDERED: ACETAMINOPHEN 650MG SUPP PR PRN (21:00)
[2019-03-10] MEDS ORDERED: METOPROLOL TARTRATE 25MG TABLET PO SCH (21:00)
[2019-03-10 21:15] VITALS: BP 148/61
[2019-03-10] MEDS ORDERED: LORAZEPAM 2MG/ML CPJ IV PRN (21:45)
[2019-03-10] MEDS: OXCARBAZEPINE 300MG TABLET PO SCH (22:10)
[2019-03-10] MEDS: DEXT 5%/0.45% NACL 1000ML 1,000 ML IV SCH (22:10)
[2019-03-11] VITALS: BP 129/46
[2019-03-11 04:00] VITALS: BP 141/45
[2019-03-11 08:00] VITALS: BP 140/43
[2019-03-11] MEDS: MEMANTINE HCL 5MG TABLET PO SCH (08:26)
[2019-03-11] MEDS: AMLODIPINE 10MG TABLET PO SCH (08:26)
[2019-03-11] MEDS: OXCARBAZEPINE 300MG TABLET PO SCH ×2 (08:26→17:10)
[2019-03-11] MEDS: CLOPIDOGREL 75MG TABLET PO SCH (08:26)
[2019-03-11 09:05] LABS: BASOPHILS % 0.3 % (0.0-2.0); EOSINOPHILS % 0.2 % (0.0-5.0); HEMATOCRIT. 37.1 % (36.0-48.0); HEMOGLOBIN. 12.6 g/dL (12.0-16.0); LYMPHOCYTES % 30.3 % (20.0-50.0); MEAN CORPUSCULAR HEMOGLOBIN 32.7 pg (28.0-32.0); MEAN CORPUSCULAR VOLUME 96.4 fL (81.0-99.0); MEAN PLATELET VOLUME 8.9 fl (7.4-10.4); MONOCYTES % 7.5 % (2.0-8.0); NEUTROPHILS % 61.7 % (40.0-76.0); PLATELET 169 x1000/uL (130-400); RED BLOOD CELL COUNT 3.85 mill/uL (4.2-5.4); RED CELL DISTRIBUTION WIDTH 13.3 % (11.6-14.6)
[2019-03-11 09:30] LABS: CHLORIDE 107 mEq/L (98-107)
[2019-03-11 09:37] LABS: LDL CHOLESTEROL 49 mg/dL (5-100)
[2019-03-11 09:38] LABS: HDL CHOLESTEROL 52 mg/dL (40-59)
[2019-03-11 12:00] VITALS: BP 118/52
[2019-03-11] MEDS ORDERED: POTASSIUM CHLORIDE 20MEQ TABLET SR PO NR (13:30)
[2019-03-11] MEDS: DEXT 5%/0.45% NACL 1000ML 1,000 ML IV SCH (13:47)
[2019-03-11 16:00] VITALS: BP 120/37
[2019-03-11 19:33] LABS: T4 FREE 0.9 ng/dL (0.76-1.46)
[2019-03-11 20:00] VITALS: BP 103/52
[2019-03-11] MEDS: LEVOFLOXACIN 250MG PREMIX 50 ML IV SCH (20:05)
[2019-03-11] MEDS: VANCOMYCIN 1 G PREMIX 200 ML IV SCH ×2 (23:31)
[2019-03-12] VITALS (7 sets, daily range): BP systolic 127–156; BP diastolic 41–54
[2019-03-12 00:18] LABS: CREATINE KINASE 70 IU/L (26-192)
[2019-03-12 00:20] LABS: CREATINE KINASE MB FRACTION < 1.0 ng/mL (0.5-3.6)
[2019-03-12] MEDS: DEXT 5%/0.45% NACL 1000ML 1,000 ML IV SCH ×2 (06:10→23:40)
[2019-03-12 07:31] LABS: CREATINE KINASE 59 IU/L (26-192)
[2019-03-12 07:33] LABS: CREATINE KINASE MB FRACTION < 1.0 ng/mL (0.5-3.6)
[2019-03-12] MEDS: CLOPIDOGREL 75MG TABLET PO SCH (09:18)
[2019-03-12] MEDS: MEMANTINE HCL 5MG TABLET PO SCH (09:19)
[2019-03-12] MEDS: AMLODIPINE 10MG TABLET PO SCH (09:20)
[2019-03-12] MEDS: OXCARBAZEPINE 300MG TABLET PO SCH ×2 (09:20→17:50)
[2019-03-12 19:17] LABS: BASOPHILS % 0.4 % (0.0-2.0); EOSINOPHILS % 1.3 % (0.0-5.0); HEMATOCRIT. 36.5 % (36.0-48.0); HEMOGLOBIN. 12.4 g/dL (12.0-16.0); LYMPHOCYTES % 27.9 % (20.0-50.0); MEAN CORPUSCULAR HEMOGLOBIN 32.8 pg (28.0-32.0); MEAN CORPUSCULAR VOLUME 96.4 fL (81.0-99.0); MEAN PLATELET VOLUME 8.7 fl (7.4-10.4); MONOCYTES % 6.6 % (2.0-8.0); NEUTROPHILS % 63.8 % (40.0-76.0); PLATELET 158 x1000/uL (130-400); RED BLOOD CELL COUNT 3.78 mill/uL (4.2-5.4); RED CELL DISTRIBUTION WIDTH 13.3 % (11.6-14.6)
[2019-03-12 19:26] LABS: CHLORIDE 107 mEq/L (98-107)
[2019-03-12 19:34] LABS: PHOSPHORUS 2.5 mg/dL (2.5-4.9)
[2019-03-12 19:35] LABS: CREATINE KINASE 57 IU/L (26-192)
[2019-03-12 19:37] LABS: CREATINE KINASE MB FRACTION < 1.0 ng/mL (0.5-3.6)
[2019-03-12] MEDS: LAMOTRIGINE 25MG TABLET PO SCH (21:08)
[2019-03-12] MEDS: LEVOFLOXACIN 250MG PREMIX 50 ML IV SCH (21:09)
[2019-03-12] MEDS: VANCOMYCIN 1 G PREMIX 200 ML IV SCH (23:39)
[2019-03-13] VITALS: BP 156/42
[2019-03-13 04:00] VITALS: BP 144/75
[2019-03-13 06:50] LABS: BASOPHILS % 0.7 % (0.0-2.0); CHLORIDE 110 mEq/L (98-107); EOSINOPHILS % 2.7 % (0.0-5.0); HEMATOCRIT. 37.3 % (36.0-48.0); HEMOGLOBIN. 12.7 g/dL (12.0-16.0); LYMPHOCYTES % 39.1 % (20.0-50.0); MEAN CORPUSCULAR HEMOGLOBIN 33.1 pg (28.0-32.0); MEAN CORPUSCULAR VOLUME 97.3 fL (81.0-99.0); MEAN PLATELET VOLUME 8.8 fl (7.4-10.4); MONOCYTES % 6.6 % (2.0-8.0); NEUTROPHILS % 50.9 % (40.0-76.0); PLATELET 142 x1000/uL (130-400); RED BLOOD CELL COUNT 3.83 mill/uL (4.2-5.4); RED CELL DISTRIBUTION WIDTH 13.1 % (11.6-14.6)
[2019-03-13 08:00] VITALS: BP 133/53
[2019-03-13] MEDS: MEMANTINE HCL 5MG TABLET PO SCH (08:58)
[2019-03-13] MEDS: CLOPIDOGREL 75MG TABLET PO SCH (08:58)
[2019-03-13] MEDS: OXCARBAZEPINE 300MG TABLET PO SCH (08:58)
[2019-03-13] MEDS: AMLODIPINE 10MG TABLET PO SCH (08:58)
[2019-03-13] MEDS: LAMOTRIGINE 25MG TABLET PO SCH (08:58)
[2019-03-13 12:00] VITALS: BP 132/52
[2019-03-13 12:33] VITALS: BP 132/52
[2019-03-14] MEDS ORDERED: LEVOFLOXACIN 250MG TABLET PO SCH (20:00)
== END 2019-03-13 14:50 | disposition home or self-care (01) | DRG 101 ==
LOC: ER 09:45 → 5WST 13:17 → CANRESERV 13:45 → ENRESERV 13:45
PROVIDERS: ADMIT Internal Medicine Nephrology; ATTEND Internal Medicine Nephrology
DX: G40.909 Epilepsy, unspecified, not intractable, without status epilepticus (principal); N39.0 Urinary tract infection, site not specified; I25.10 Atherosclerotic heart disease of native coronary artery without angina pectoris; I11.0 Hypertensive heart disease with heart failure; E11.9 Type 2 diabetes mellitus without complications; G30.9 Alzheimer's disease, unspecified; F02.80 Dementia in other diseases classified elsewhere, unspecified severity, without behavioral disturbance, psychotic disturbance, mood disturbance, and anxiety; I50.9 Heart failure, unspecified; J44.9 Chronic obstructive pulmonary disease, unspecified; E87.6 Hypokalemia; I45.10 Unspecified right bundle-branch block; R32 Unspecified urinary incontinence; Z86.73 Personal history of transient ischemic attack (TIA), and cerebral infarction without residual deficits; Z79.899 Other long term (current) drug therapy; Z88.0 Allergy status to penicillin; Z79.02 Long term (current) use of antithrombotics/antiplatelets; Z95.5 Presence of coronary angioplasty implant and graft; Z87.440 Personal history of urinary (tract) infections
CPT/HCPCS: 36415; 71045; 80048; 80053; 80061; 80305; 80320; 81003; 82550; 82553; 82962; 83036; 83721; 83735; 83880; 84100; 84439; 84443; 84484; 85025; 85379; 90732; 93005; 93306; 93970; 97116; 97162; 97166; 99285; A6261; J1956; J3370; G0480

== ENCOUNTER 2019-07-03 08:38 | Inpatient (IN) | payer MEDICARE ==
[~2019-07-03] VITALS: Ht 172.7 cm; Wt 88.9 kg
[~2019-07-03 08:38] MED LIST changes: -METO-396 PO
[2019-07-03 09:52] LABS: BASOPHILS % 0.4 % (0.0-2.0); EOSINOPHILS % 1.2 % (0.0-5.0); HEMATOCRIT. 35.7 % (36.0-48.0); HEMOGLOBIN. 12.2 g/dL (12.0-16.0); LYMPHOCYTES % 37.4 % (20.0-50.0); MEAN CORPUSCULAR HEMOGLOBIN 31.4 pg (28.0-32.0); MEAN CORPUSCULAR VOLUME 91.8 fL (81.0-99.0); MEAN PLATELET VOLUME 8.3 fl (7.4-10.4); MONOCYTES % 5.8 % (2.0-8.0); NEUTROPHILS % 55.2 % (40.0-76.0); PLATELET 170 x1000/uL (130-400); RED BLOOD CELL COUNT 3.89 mill/uL (4.2-5.4); RED CELL DISTRIBUTION WIDTH 15.5 % (11.6-14.6)
[2019-07-03 09:59] LABS: CHLORIDE 109 mEq/L (98-107)
[2019-07-03] MEDS ORDERED: POTASSIUM CHLORIDE 20MEQ TABLET SR PO ONE (10:30)
[2019-07-03] MEDS ORDERED: HYDROCODONE/APAP 7.5/325MG 1 TAB TABLET PO PRN (13:15)
[2019-07-03] MEDS ORDERED: HYDROMORPHONE HCL/PF 2MG/ML CPJ IV PRN (13:15)
[2019-07-03] MEDS ORDERED: MEMANTINE HCL 5MG TABLET PO SCH (13:15)
[2019-07-03] MEDS ORDERED: ONDANSETRON HCL 4MG/2ML INJ IV PRN (13:15)
[2019-07-03] MEDS ORDERED: DOCUSATE SODIUM 100MG CAPSULE PO PRN (13:15)
[2019-07-03] MEDS ORDERED: CLONIDINE 0.1MG TABLET PO PRN (13:15)
[2019-07-03] MEDS: AMLODIPINE 10MG TABLET PO SCH (14:01)
[2019-07-03] MEDS: CLOPIDOGREL 75MG TABLET PO SCH (14:01)
[2019-07-03] MEDS: ENOXAPARIN 30MG/0.3ML SYR SUBCUT SCH (14:07)
[2019-07-03] MEDS: MEMANTINE HCL 5MG TABLET PO SCH (15:00)
[2019-07-03] MEDS: LEVOFLOXACIN 250MG PREMIX 50 ML IV SCH (15:28)
[2019-07-03 17:39] LABS: CLARITY URINE CLOUDY (CLEAR); COLOR URINE YELLOW (YELLOW); KETONES URINE 1+ (NEGATIVE); LEUKOCYTE ESTERASE URINE 1+ (NEGATIVE); NITRITE URINE NEGATIVE (NEGATIVE); OCCULT BLOOD URINE NEGATIVE (NEGATIVE); PROTEIN URINE 2+ (NEGATIVE); SPECIFIC GRAVITY URINE 1.019 (1.005-1.030)
[2019-07-04 00:45] VITALS: BP 172/83
[2019-07-04 04:00] VITALS: BP 141/46
[2019-07-04 06:21] LABS: CHLORIDE 112 mEq/L (98-107)
[2019-07-04 06:31] LABS: BASOPHILS % 0.5 % (0.0-2.0); EOSINOPHILS % 1.9 % (0.0-5.0); HEMATOCRIT. 31.6 % (36.0-48.0); HEMOGLOBIN. 10.8 g/dL (12.0-16.0); LYMPHOCYTES % 28.4 % (20.0-50.0); MEAN CORPUSCULAR HEMOGLOBIN 31.5 pg (28.0-32.0); MEAN CORPUSCULAR VOLUME 92.1 fL (81.0-99.0); MEAN PLATELET VOLUME 8.9 fl (7.4-10.4); MONOCYTES % 7.4 % (2.0-8.0); NEUTROPHILS % 61.8 % (40.0-76.0); PLATELET 140 x1000/uL (130-400); RED BLOOD CELL COUNT 3.43 mill/uL (4.2-5.4); RED CELL DISTRIBUTION WIDTH 15.2 % (11.6-14.6)
[2019-07-04 06:38] LABS: LDL CHOLESTEROL 47 mg/dL (5-100)
[2019-07-04 06:39] LABS: HDL CHOLESTEROL 52 mg/dL (40-59)
[2019-07-04 08:00] VITALS: BP 151/46
[2019-07-04] MEDS: AMLODIPINE 10MG TABLET PO SCH (09:17)
[2019-07-04] MEDS: CLOPIDOGREL 75MG TABLET PO SCH (09:17)
[2019-07-04] MEDS: LEVETIRACETAM 500MG TABLET PO SCH ×2 (09:17→20:27)
[2019-07-04] MEDS: FUROSEMIDE 40MG/4ML VIAL IV SCH (09:17)
[2019-07-04] MEDS: ENOXAPARIN 30MG/0.3ML SYR SUBCUT SCH (09:18)
[2019-07-04] MEDS: MEMANTINE HCL 5MG TABLET PO SCH (09:21)
[2019-07-04] MEDS ORDERED: PROMETHAZINE/DEXTROMETHORPHAN 6.25-15MG/5ML BOTTLE 120ML PO PRN (11:30)
[2019-07-04] MEDS: POTASSIUM CHLORIDE 20MEQ TABLET SR PO SCH (11:54)
[2019-07-04 12:00] VITALS: BP 103/53
[2019-07-04] MEDS: LEVOFLOXACIN 250MG PREMIX 50 ML IV SCH (15:35)
[2019-07-04 16:00] VITALS: BP 102/59
[2019-07-04 20:00] VITALS: BP 117/66
[2019-07-05 04:00] VITALS: BP 151/72
[2019-07-05 06:42] LABS: CHLORIDE 110 mEq/L (98-107)
[2019-07-05 06:52] LABS: PHOSPHORUS 3.1 mg/dL (2.5-4.9)
[2019-07-05 06:57] LABS: BASOPHILS % 0.7 % (0.0-2.0); EOSINOPHILS % 3.1 % (0.0-5.0); HEMATOCRIT. 37.7 % (36.0-48.0); HEMOGLOBIN. 12.5 g/dL (12.0-16.0); MEAN CORPUSCULAR HEMOGLOBIN 30.9 pg (28.0-32.0); MEAN CORPUSCULAR VOLUME 93.6 fL (81.0-99.0); MONOCYTES % 7.8 % (2.0-8.0); NEUTROPHILS % 51.4 % (40.0-76.0); PLATELET 163 x1000/uL (130-400); RED BLOOD CELL COUNT 4.03 mill/uL (4.2-5.4); RED CELL DISTRIBUTION WIDTH 15.4 % (11.6-14.6)
[2019-07-05 08:00] VITALS: BP 165/48
[2019-07-05] MEDS: CLOPIDOGREL 75MG TABLET PO SCH (09:03)
[2019-07-05] MEDS: POTASSIUM CHLORIDE 20MEQ TABLET SR PO SCH (09:03)
[2019-07-05] MEDS: LEVETIRACETAM 500MG TABLET PO SCH ×2 (09:04→21:34)
[2019-07-05] MEDS: AMLODIPINE 10MG TABLET PO SCH (09:04)
[2019-07-05] MEDS: MEMANTINE HCL 5MG TABLET PO SCH (09:04)
[2019-07-05] MEDS: ENOXAPARIN 30MG/0.3ML SYR SUBCUT SCH (09:06)
[2019-07-05] MEDS: FUROSEMIDE 40MG/4ML VIAL IV SCH (09:21)
[2019-07-05 12:00] VITALS: BP 140/54
[2019-07-05] MEDS ORDERED: VANCOMYCIN 2,000 MG in DEXT 5% WATER 500 ML IV SCH (12:00)
[2019-07-05 16:00] VITALS: BP 138/79
[2019-07-05] MEDS: LEVOFLOXACIN 250MG PREMIX 50 ML IV SCH (18:05)
[2019-07-05 20:00] VITALS: BP 137/57
[2019-07-05] MEDS: IPRATROPIUM/ALBUTEROL 0.5-3(2.5)MG/3ML NEB HHN SCH (20:32)
[2019-07-06 00:46] VITALS: BP 123/43
[2019-07-06] MEDS: IPRATROPIUM/ALBUTEROL 0.5-3(2.5)MG/3ML NEB HHN SCH ×3 (02:17→14:38)
[2019-07-06 04:00] VITALS: BP 150/47
[2019-07-06] MEDS ORDERED: VANCOMYCIN 1 G PREMIX 200 ML IV SCH (06:00)
[2019-07-06 08:00] VITALS: BP 156/48
[2019-07-06 08:14] LABS: BASOPHILS % 0.5 % (0.0-2.0); EOSINOPHILS % 2.1 % (0.0-5.0); HEMATOCRIT. 36.8 % (36.0-48.0); HEMOGLOBIN. 12.5 g/dL (12.0-16.0); LYMPHOCYTES % 30.7 % (20.0-50.0); MEAN CORPUSCULAR HEMOGLOBIN 31.4 pg (28.0-32.0); MEAN CORPUSCULAR VOLUME 92.6 fL (81.0-99.0); MEAN PLATELET VOLUME 8.7 fl (7.4-10.4); MONOCYTES % 7.8 % (2.0-8.0); NEUTROPHILS % 58.9 % (40.0-76.0); PLATELET 166 x1000/uL (130-400); RED BLOOD CELL COUNT 3.97 mill/uL (4.2-5.4); RED CELL DISTRIBUTION WIDTH 15.5 % (11.6-14.6)
[2019-07-06 08:35] LABS: CHLORIDE 107 mEq/L (98-107)
[2019-07-06] MEDS: FUROSEMIDE 40MG/4ML VIAL IV SCH (09:52)
[2019-07-06] MEDS: POTASSIUM CHLORIDE 20MEQ TABLET SR PO SCH (09:52)
[2019-07-06] MEDS: LEVETIRACETAM 500MG TABLET PO SCH ×2 (09:53→20:42)
[2019-07-06] MEDS: CLOPIDOGREL 75MG TABLET PO SCH (09:53)
[2019-07-06] MEDS: AMLODIPINE 10MG TABLET PO SCH (09:54)
[2019-07-06] MEDS: ENOXAPARIN 30MG/0.3ML SYR SUBCUT SCH (10:04)
[2019-07-06] MEDS: LEVOFLOXACIN 250MG TABLET PO SCH (12:00)
[2019-07-06 16:00] VITALS: BP 126/51
[2019-07-06] MEDS: LEVOTHYROXINE SODIUM 25MCG TABLET PO SCH (16:13)
[2019-07-06 20:00] VITALS: BP 139/61
[2019-07-07 00:10] VITALS: BP 134/75
[2019-07-07] MEDS: IPRATROPIUM/ALBUTEROL 0.5-3(2.5)MG/3ML NEB HHN SCH ×3 (02:27→14:45)
[2019-07-07 04:00] VITALS: BP 136/56
[2019-07-07] MEDS: LEVOTHYROXINE SODIUM 25MCG TABLET PO SCH (06:22)
[2019-07-07 07:20] LABS: BASOPHILS % 0.7 % (0.0-2.0); EOSINOPHILS % 3.2 % (0.0-5.0); HEMATOCRIT. 37.8 % (36.0-48.0); HEMOGLOBIN. 12.6 g/dL (12.0-16.0); LYMPHOCYTES % 36.2 % (20.0-50.0); MEAN CORPUSCULAR HEMOGLOBIN 30.7 pg (28.0-32.0); MEAN CORPUSCULAR VOLUME 92.3 fL (81.0-99.0); MEAN PLATELET VOLUME 8.5 fl (7.4-10.4); NEUTROPHILS % 50.9 % (40.0-76.0); PLATELET 166 x1000/uL (130-400); RED CELL DISTRIBUTION WIDTH 15.9 % (11.6-14.6)
[2019-07-07 08:00] VITALS: BP 116/70
[2019-07-07 08:07] LABS: CHLORIDE 109 mEq/L (98-107)
[2019-07-07] MEDS: AMLODIPINE 10MG TABLET PO SCH (08:52)
[2019-07-07] MEDS: LEVETIRACETAM 500MG TABLET PO SCH ×2 (08:52→21:18)
[2019-07-07] MEDS: POTASSIUM CHLORIDE 20MEQ TABLET SR PO SCH (08:52)
[2019-07-07] MEDS: CLOPIDOGREL 75MG TABLET PO SCH (08:52)
[2019-07-07] MEDS: ENOXAPARIN 30MG/0.3ML SYR SUBCUT SCH (08:53)
[2019-07-07] MEDS: FUROSEMIDE 40MG/4ML VIAL IV SCH (08:54)
[2019-07-07] MEDS: LEVOFLOXACIN 250MG TABLET PO SCH (11:27)
[2019-07-07 12:00] VITALS: BP 156/54
[2019-07-07] MEDS: FUROSEMIDE 40MG TABLET PO SCH (12:15)
[2019-07-07 16:00] VITALS: BP 140/89
[2019-07-07 20:00] VITALS: BP 152/65
[2019-07-07] MEDS ORDERED: MAGNESIUM/ALUMINUM HYDROXIDE/SIMETHICONE 30ML UDC PO NR (23:32)
[2019-07-08] VITALS: BP 146/59
[2019-07-08] MEDS: IPRATROPIUM/ALBUTEROL 0.5-3(2.5)MG/3ML NEB HHN SCH ×4 (02:41→21:00)
[2019-07-08 04:00] VITALS: BP 163/49
[2019-07-08] MEDS: LEVOTHYROXINE SODIUM 25MCG TABLET PO SCH (05:51)
[2019-07-08 08:00] VITALS: BP 142/64
[2019-07-08 09:41] LABS: BASOPHILS % 0.9 % (0.0-2.0); EOSINOPHILS % 4.3 % (0.0-5.0); HEMATOCRIT. 39.4 % (36.0-48.0); HEMOGLOBIN. 13.2 g/dL (12.0-16.0); LYMPHOCYTES % 36.8 % (20.0-50.0); MEAN CORPUSCULAR HEMOGLOBIN 31.1 pg (28.0-32.0); MEAN CORPUSCULAR VOLUME 92.9 fL (81.0-99.0); MEAN PLATELET VOLUME 8.4 fl (7.4-10.4); PLATELET 173 x1000/uL (130-400); RED BLOOD CELL COUNT 4.25 mill/uL (4.2-5.4); RED CELL DISTRIBUTION WIDTH 15.8 % (11.6-14.6)
[2019-07-08 09:51] LABS: CHLORIDE 108 mEq/L (98-107)
[2019-07-08] MEDS: LEVETIRACETAM 500MG TABLET PO SCH ×2 (09:56→21:09)
[2019-07-08] MEDS: FUROSEMIDE 40MG TABLET PO SCH (09:57)
[2019-07-08] MEDS: AMLODIPINE 10MG TABLET PO SCH (09:57)
[2019-07-08] MEDS: ENOXAPARIN 30MG/0.3ML SYR SUBCUT SCH (09:57)
[2019-07-08] MEDS: CLOPIDOGREL 75MG TABLET PO SCH (09:57)
[2019-07-08] MEDS: POTASSIUM CHLORIDE 20MEQ TABLET SR PO SCH (09:57)
[2019-07-08 12:00] VITALS: BP 140/68
[2019-07-08 16:00] VITALS: BP 162/67
[2019-07-08 20:00] VITALS: BP 117/85
[2019-07-09] VITALS: BP 137/64
[2019-07-09 04:00] VITALS: BP 147/72
[2019-07-09] MEDS: LEVOTHYROXINE SODIUM 25MCG TABLET PO SCH (06:11)
[2019-07-09 08:00] VITALS: BP 120/66
[2019-07-09] MEDS: CLOPIDOGREL 75MG TABLET PO SCH (08:49)
[2019-07-09] MEDS: AMLODIPINE 10MG TABLET PO SCH (08:49)
[2019-07-09] MEDS: FUROSEMIDE 40MG TABLET PO SCH (08:49)
[2019-07-09] MEDS: POTASSIUM CHLORIDE 20MEQ TABLET SR PO SCH (08:49)
[2019-07-09] MEDS: ENOXAPARIN 30MG/0.3ML SYR SUBCUT SCH (08:50)
[2019-07-09] MEDS: LEVETIRACETAM 500MG TABLET PO SCH ×2 (09:00→20:42)
[2019-07-09] MEDS: IPRATROPIUM/ALBUTEROL 0.5-3(2.5)MG/3ML NEB HHN SCH ×3 (09:30→21:20)
[2019-07-09 16:00] VITALS: BP 138/70
[2019-07-09 20:00] VITALS: BP 129/59
[2019-07-10] VITALS: BP 138/67
[2019-07-10 04:00] VITALS: BP 134/51
[2019-07-10] MEDS: LEVOTHYROXINE SODIUM 25MCG TABLET PO SCH (06:05)
[2019-07-10 08:00] VITALS: BP 139/52
[2019-07-10] MEDS: IPRATROPIUM/ALBUTEROL 0.5-3(2.5)MG/3ML NEB HHN SCH ×2 (08:58→14:16)
[2019-07-10] MEDS: LEVETIRACETAM 500MG TABLET PO SCH ×3 (09:10→20:31)
[2019-07-10] MEDS: CLOPIDOGREL 75MG TABLET PO SCH (09:10)
[2019-07-10] MEDS: ENOXAPARIN 30MG/0.3ML SYR SUBCUT SCH (09:10)
[2019-07-10] MEDS: AMLODIPINE 10MG TABLET PO SCH (09:10)
[2019-07-10] MEDS: POTASSIUM CHLORIDE 20MEQ TABLET SR PO SCH (09:10)
[2019-07-10] MEDS: FUROSEMIDE 40MG TABLET PO SCH (09:10)
[2019-07-10] MEDS: ACETAMINOPHEN 325MG TABLET PO PRN ×2 (11:23→17:55)
[2019-07-10 12:00] VITALS: BP 142/100
[2019-07-10 16:00] VITALS: BP 138/55
[2019-07-10 20:00] VITALS: BP 136/48
[2019-07-11] VITALS (7 sets, daily range): BP systolic 116–157; BP diastolic 49–91
[2019-07-11] MEDS: ACETAMINOPHEN 325MG TABLET PO PRN (05:14)
[2019-07-11] MEDS: LEVOTHYROXINE SODIUM 25MCG TABLET PO SCH (05:45)
[2019-07-11] MEDS: IPRATROPIUM/ALBUTEROL 0.5-3(2.5)MG/3ML NEB HHN SCH ×2 (08:12→13:15)
[2019-07-11] MEDS: LEVETIRACETAM 500MG TABLET PO SCH (09:47)
[2019-07-11] MEDS: CLOPIDOGREL 75MG TABLET PO SCH (09:47)
[2019-07-11] MEDS: POTASSIUM CHLORIDE 20MEQ TABLET SR PO SCH (09:47)
[2019-07-11] MEDS: AMLODIPINE 10MG TABLET PO SCH (09:48)
[2019-07-11] MEDS: FUROSEMIDE 40MG TABLET PO SCH (09:48)
[2019-07-11] MEDS: ENOXAPARIN 30MG/0.3ML SYR SUBCUT SCH (09:50)
== END 2019-07-11 15:30 | DRG 291 ==
LOC: ER 09:02 → EDBEDREQ 10:40 → MICUSO 12:10 → EDBEDREQ 12:13 → 7WST 07-04 01:13 → 5WST 07-04 12:28
PROVIDERS: ADMIT Internal Medicine Nephrology; ATTEND Internal Medicine Nephrology
DX: I11.0 Hypertensive heart disease with heart failure (principal); J96.01 Acute respiratory failure with hypoxia; J44.1 Chronic obstructive pulmonary disease with (acute) exacerbation; I50.43 Acute on chronic combined systolic (congestive) and diastolic (congestive) heart failure; G40.909 Epilepsy, unspecified, not intractable, without status epilepticus; I25.10 Atherosclerotic heart disease of native coronary artery without angina pectoris; I35.0 Nonrheumatic aortic (valve) stenosis; E87.6 Hypokalemia; E78.5 Hyperlipidemia, unspecified; E11.9 Type 2 diabetes mellitus without complications; D64.9 Anemia, unspecified; R00.1 Bradycardia, unspecified; Z20.828 Contact with and (suspected) exposure to other viral communicable diseases; F03.90 Unspecified dementia, unspecified severity, without behavioral disturbance, psychotic disturbance, mood disturbance, and anxiety; E03.9 Hypothyroidism, unspecified; Z86.73 Personal history of transient ischemic attack (TIA), and cerebral infarction without residual deficits; Z95.5 Presence of coronary angioplasty implant and graft; Z79.02 Long term (current) use of antithrombotics/antiplatelets; Z88.0 Allergy status to penicillin; Z79.899 Other long term (current) drug therapy; Z87.440 Personal history of urinary (tract) infections
CPT/HCPCS: 36415; 71045; 80048; 80053; 80061; 81003; 82962; 83735; 83880; 84100; 84439; 84443; 84484; 85025; 93005; 93306; 93971; 94640; 96365; 97116; 97162; 97530; 99285; J1650; J1940; J1956; J3370; J7060; U0003-CS

== ENCOUNTER 2019-08-07 01:36 | Inpatient (IN) | payer MEDICARE ==
[~2019-08-07] VITALS: Ht 165.1 cm; Wt 80.4 kg
[2019-08-07 02:42] LABS: CHLORIDE 110 mEq/L (98-107)
[2019-08-07 02:59] LABS: BASOPHILS % 0.4 % (0.0-2.0); EOSINOPHILS % 0.6 % (0.0-5.0); HEMOGLOBIN. 12.7 g/dL (12.0-16.0); LYMPHOCYTES % 26.5 % (20.0-50.0); MEAN CORPUSCULAR HEMOGLOBIN 30.6 pg (28.0-32.0); MEAN CORPUSCULAR VOLUME 91.3 fL (81.0-99.0); MEAN PLATELET VOLUME 8.8 fl (7.4-10.4); MONOCYTES % 5.9 % (2.0-8.0); NEUTROPHILS % 66.6 % (40.0-76.0); PLATELET 155 x1000/uL (130-400); RED BLOOD CELL COUNT 4.16 mill/uL (4.2-5.4); RED CELL DISTRIBUTION WIDTH 15.2 % (11.6-14.6)
[2019-08-07] MEDS ORDERED: IOHEXOL-350 100 ML BOTTLE ONE ×2 (06:26→14:14)
[2019-08-07] MEDS ORDERED: SODIUM CHLORIDE 0.9% 1,000 ML IV ONE (06:35)
[2019-08-07] MEDS ORDERED: ALTEPLASE 100MG/VIAL IV STA (07:22)
[2019-08-07] MEDS ORDERED: ALTEPLASE IV STA (07:22)
[2019-08-07] MEDS ORDERED: *NO ASPIRIN X 24 HOURS XX SCH (07:39)
[2019-08-07] MEDS ORDERED: ALTEPLASE 100MG/VIAL IV NR (07:39)
[2019-08-07] MEDS ORDERED: CONTAINER EMPTY IV ONE (07:41)
[2019-08-07] MEDS ORDERED: ALTEPLASE IV ONE (07:41)
[2019-08-07] MEDS ORDERED: LORAZEPAM 2MG/ML CPJ ONE (07:44)
[2019-08-07] MEDS ORDERED: LORAZEPAM 2MG/ML CPJ IV ONE (08:00)
[2019-08-07] MEDS ORDERED: LEVETIRACETAM 1000MG/100ML 100 ML IV ONE (08:00)
[2019-08-07 08:03] LABS: INR 1.1; PROTHROMBIN TIME 11.2 sec (9.6-11.0)
[2019-08-07] MEDS ORDERED: ETOMIDATE 2MG/ML 10ML VIAL IV ONE ×2 (09:08→09:15)
[2019-08-07] MEDS ORDERED: SUCCINYLCHOLINE CHLORIDE 200MG/10ML IV ONE ×2 (09:08→09:15)
[2019-08-07] MEDS ORDERED: PROPOFOL 10MG/ML 100ML 100 ML IV ONE ×2 (09:15→13:16)
[2019-08-07 11:44] LABS: BG BASE EXCESS -3.5 mmol/L (-2.0-2.0); BG CARBOXYHEMOGLOBIN 0.3 % (0.5-1.5); BG DEOXYHEMOGLOBIN 0.6 % (0.0-5.0); BG FRACTION INSPIRED OXYGEN 100; BG HCO3 ACT 20.3 mmol/L (22.0-26.0); BG METHEMOGLOBIN 0.2 % (0.0-1.5); BG OXYGEN SATURATION 99.4 % (92.0-98.5); BG OXYHEMOGLOBIN 98.9 % (94.0-97.0); BG PCO2 32.7 mmHg (35.0-45.0); BG PH 7.411 (7.350-7.450); BG PO2 249.4 mmHg (75.0-100.0); BG SAMPLE SITE RIGHT RADIAL; BG TIDAL VOLUME(mL) 500 mL; BG TOTAL HEMOGLOBIN 12.1 g/dL (12.0-18.0); BG VENT MODE VENT - A/C; BG VENT RATE 12 set
[2019-08-07] MEDS ORDERED: IPRATROPIUM/ALBUTEROL 0.5-3(2.5)MG/3ML NEB HHN PRN (14:00)
[2019-08-07 16:11] LABS: CLARITY URINE CLEAR (CLEAR); COLOR URINE YELLOW (YELLOW); KETONES URINE NEGATIVE (NEGATIVE); LEUKOCYTE ESTERASE URINE NEGATIVE (NEGATIVE); NITRITE URINE NEGATIVE (NEGATIVE); OCCULT BLOOD URINE NEGATIVE (NEGATIVE); PH URINE 5.5 (4.5-8.0); PROTEIN URINE 2+ (NEGATIVE); SPECIFIC GRAVITY URINE 1.087 (1.005-1.030); UROBILINOGEN URINE 0.2 E.U./dL (0.2-1.0)
[2019-08-07] MEDS ORDERED: LEVETIRACETAM 500MG PREMIX 100 ML IV ONE (16:45)
[2019-08-07] MEDS: AZTREONAM 1 G in DEXTROSE 5% WATER 50 ML IV SCH (16:46)
[2019-08-07] MEDS: PROPOFOL 10MG/ML 100ML 100 ML IV PRN ×2 (18:20→23:47)
[2019-08-07] MEDS: LEVETIRACETAM 250MG in SODIUM CHLORIDE 0.9% 100ML IV SCH (21:27)
[2019-08-08] MEDS: AZTREONAM 1 G in DEXTROSE 5% WATER 50 ML IV SCH ×2 (03:00→15:00)
[2019-08-08] MEDS: PANTOPRAZOLE SODIUM 40 MG/VIAL IV SCH (09:00)
[2019-08-08] MEDS: LEVETIRACETAM 250MG in SODIUM CHLORIDE 0.9% 100ML IV SCH ×2 (09:00→21:36)
[2019-08-08] MEDS: IPRATROPIUM/ALBUTEROL 0.5-3(2.5)MG/3ML NEB HHN SCH ×3 (09:48→20:10)
[2019-08-08 10:34] LABS: BG CARBOXYHEMOGLOBIN 0.4 % (0.5-1.5); BG DEOXYHEMOGLOBIN 11.7 % (0.0-5.0); BG FRACTION INSPIRED OXYGEN 50; BG HCO3 ACT 22.3 mmol/L (22.0-26.0); BG METHEMOGLOBIN 0.3 % (0.0-1.5); BG OXYGEN SATURATION 88.2 % (92.0-98.5); BG OXYHEMOGLOBIN 87.6 % (94.0-97.0); BG PCO2 32.7 mmHg (35.0-45.0); BG PH 7.451 (7.350-7.450); BG PO2 51.5 mmHg (75.0-100.0); BG SAMPLE SITE LEFT RADIAL; BG TIDAL VOLUME(mL) 450 mL; BG TOTAL HEMOGLOBIN 12.2 g/dL (12.0-18.0); BG VENT MODE VENT - A/C; BG VENT RATE 12 set
[2019-08-08] MEDS ORDERED: FENTANYL CITRATE/PF 500 MCG in SODIUM CHLORIDE 0.9% 40 ML IV PRN (11:30)
[2019-08-08] MEDS ORDERED: FENTANYL 1,000 MCG in SODIUM CHLORIDE 0.9% 100 ML IV PRN (11:45)
[2019-08-08 11:47] LABS: T4 FREE 1.23 ng/dL (0.76-1.46)
[2019-08-08 15:10] LABS: BASOPHILS % 0.2 % (0.0-2.0); HEMATOCRIT. 32.4 % (36.0-48.0); HEMOGLOBIN. 11.1 g/dL (12.0-16.0); LYMPHOCYTES % 19.1 % (20.0-50.0); MEAN CORPUSCULAR HEMOGLOBIN 31.4 pg (28.0-32.0); MEAN CORPUSCULAR VOLUME 91.2 fL (81.0-99.0); MEAN PLATELET VOLUME 8.9 fl (7.4-10.4); MONOCYTES % 3.9 % (2.0-8.0); NEUTROPHILS % 76.8 % (40.0-76.0); PLATELET 124 x1000/uL (130-400); RED BLOOD CELL COUNT 3.55 mill/uL (4.2-5.4); RED CELL DISTRIBUTION WIDTH 15.3 % (11.6-14.6)
[2019-08-08 15:12] LABS: CHLORIDE 113 mEq/L (98-107)
[2019-08-08 15:21] LABS: CREATINE KINASE 252 IU/L (26-192)
[2019-08-08 15:22] LABS: CREATINE KINASE MB FRACTION 1.4 ng/mL (0.5-3.6)
[2019-08-08 23:26] LABS: CREATINE KINASE MB FRACTION 1.1 ng/mL (0.5-3.6)
[2019-08-09] VITALS (28 sets, daily range): BP systolic 54–160; BP diastolic 17–80
[2019-08-09] MEDS: AZTREONAM 1 G in DEXTROSE 5% WATER 50 ML IV SCH ×2 (04:00→18:18)
[2019-08-09 05:05] LABS: BASOPHILS % 0.2 % (0.0-2.0); EOSINOPHILS % 0.7 % (0.0-5.0); HEMOGLOBIN. 10.9 g/dL (12.0-16.0); LYMPHOCYTES % 22.4 % (20.0-50.0); MEAN CORPUSCULAR HEMOGLOBIN 31.6 pg (28.0-32.0); MEAN CORPUSCULAR VOLUME 92.8 fL (81.0-99.0); MEAN PLATELET VOLUME 8.7 fl (7.4-10.4); MONOCYTES % 5.6 % (2.0-8.0); NEUTROPHILS % 71.1 % (40.0-76.0); PLATELET 106 x1000/uL (130-400); RED BLOOD CELL COUNT 3.44 mill/uL (4.2-5.4); RED CELL DISTRIBUTION WIDTH 15.3 % (11.6-14.6)
[2019-08-09] MEDS: PROPOFOL 10MG/ML 100ML 100 ML IV PRN ×2 (06:50→10:34)
[2019-08-09 08:02] LABS: CHLORIDE 112 mEq/L (98-107)
[2019-08-09 08:11] LABS: CREATINE KINASE 243 IU/L (26-192)
[2019-08-09 08:13] LABS: CREATINE KINASE MB FRACTION 1.7 ng/mL (0.5-3.6)
[2019-08-09] MEDS: IPRATROPIUM/ALBUTEROL 0.5-3(2.5)MG/3ML NEB HHN SCH ×2 (08:31→20:54)
[2019-08-09] MEDS: ASPIRIN 81MG TABLET PO SCH (09:00)
[2019-08-09] MEDS: PANTOPRAZOLE SODIUM 40 MG/VIAL IV SCH (09:08)
[2019-08-09] MEDS: LEVETIRACETAM 250MG in SODIUM CHLORIDE 0.9% 100ML IV SCH ×2 (09:43→21:33)
[2019-08-09] MEDS ORDERED: POTASSIUM CHLORIDE 20MEQ/PACKET PO NR (10:00)
[2019-08-09 10:18] LABS: BG BASE EXCESS -3.8 mmol/L (-2.0-2.0); BG CARBOXYHEMOGLOBIN 0.3 % (0.5-1.5); BG DEOXYHEMOGLOBIN 3.7 % (0.0-5.0); BG FRACTION INSPIRED OXYGEN 70; BG HCO3 ACT 20.9 mmol/L (22.0-26.0); BG OXYGEN SATURATION 96.3 % (92.0-98.5); BG PCO2 36.5 mmHg (35.0-45.0); BG PH 7.375 (7.350-7.450); BG PO2 87.1 mmHg (75.0-100.0); BG SAMPLE SITE RIGHT BRACHIAL; BG TIDAL VOLUME(mL) 450 mL; BG TOTAL HEMOGLOBIN 12.2 g/dL (12.0-18.0); BG VENT MODE VENT - A/C; BG VENT RATE 12 set
[2019-08-09] MEDS ORDERED: PROPOFOL 10MG/ML 100ML 100 ML IV PRN (11:15)
[2019-08-09] MEDS ORDERED: ACETAMINOPHEN 650MG/20.3ML UDC PO PRN (18:00)
[2019-08-09] MEDS: ATORVASTATIN CALCIUM 20MG TABLET PO SCH (21:32)
[2019-08-10] VITALS (74 sets, daily range): BP systolic 83–179; BP diastolic 43–135
[2019-08-10] MEDS: IPRATROPIUM/ALBUTEROL 0.5-3(2.5)MG/3ML NEB HHN SCH ×4 (01:40→21:15)
[2019-08-10] MEDS: AZTREONAM 1 G in DEXTROSE 5% WATER 50 ML IV SCH ×2 (04:29→17:49)
[2019-08-10] MEDS: LEVETIRACETAM 250MG in SODIUM CHLORIDE 0.9% 100ML IV SCH ×2 (08:31→23:11)
[2019-08-10] MEDS: ENOXAPARIN 40MG/0.4ML SYR SUBCUT SCH (08:31)
[2019-08-10] MEDS: PANTOPRAZOLE SODIUM 40 MG/VIAL IV SCH (08:32)
[2019-08-10] MEDS: ASPIRIN 81MG TABLET PO SCH (08:32)
[2019-08-10 09:07] LABS: BG BASE EXCESS -0.7 mmol/L (-2.0-2.0); BG CARBOXYHEMOGLOBIN 0.3 % (0.5-1.5); BG DEOXYHEMOGLOBIN 3.3 % (0.0-5.0); BG FRACTION INSPIRED OXYGEN 40; BG HCO3 ACT 22.6 mmol/L (22.0-26.0); BG METHEMOGLOBIN 0.2 % (0.0-1.5); BG OXYGEN SATURATION 96.7 % (92.0-98.5); BG OXYHEMOGLOBIN 96.2 % (94.0-97.0); BG PCO2 32.7 mmHg (35.0-45.0); BG PH 7.458 (7.350-7.450); BG PO2 88.5 mmHg (75.0-100.0); BG SAMPLE SITE RIGHT BRACHIAL; BG TIDAL VOLUME(mL) 450 mL; BG TOTAL HEMOGLOBIN 10.3 g/dL (12.0-18.0); BG VENT MODE VENT - A/C; BG VENT RATE 12 set
[2019-08-10] MEDS ORDERED: DEXTROSE 50% WATER 50ML SYRINGE IV PRN (09:30)
[2019-08-10] MEDS: AMLODIPINE 10MG TABLET PO SCH (10:24)
[2019-08-10] MEDS: CLOPIDOGREL 75MG TABLET PO SCH (10:24)
[2019-08-10] MEDS: MEMANTINE HCL 5MG TABLET PO SCH (10:24)
[2019-08-10] MEDS ORDERED: LIDOCAINE HCL 1% 20ML VIAL (Pyxis) INJ ONE (10:50)
[2019-08-10 11:24] LABS: BASOPHILS % 0.3 % (0.0-2.0); EOSINOPHILS % 1.1 % (0.0-5.0); HEMATOCRIT. 31.9 % (36.0-48.0); HEMOGLOBIN. 10.8 g/dL (12.0-16.0); LYMPHOCYTES % 22.2 % (20.0-50.0); MEAN CORPUSCULAR HEMOGLOBIN 31.8 pg (28.0-32.0); MEAN CORPUSCULAR VOLUME 94.2 fL (81.0-99.0); MEAN PLATELET VOLUME 9.7 fl (7.4-10.4); MONOCYTES % 6.5 % (2.0-8.0); NEUTROPHILS % 69.9 % (40.0-76.0); PLATELET 124 x1000/uL (130-400); RED BLOOD CELL COUNT 3.39 mill/uL (4.2-5.4); RED CELL DISTRIBUTION WIDTH 15.3 % (11.6-14.6)
[2019-08-10] MEDS: BLOOD SUGAR DIAGNOSTIC STRIP TEST SCH ×3 (12:50→20:57)
[2019-08-10 13:07] LABS: BG BASE EXCESS -4.5 mmol/L (-2.0-2.0); BG CARBOXYHEMOGLOBIN 0.3 % (0.5-1.5); BG DEOXYHEMOGLOBIN 2.8 % (0.0-5.0); BG FRACTION INSPIRED OXYGEN 40; BG HCO3 ACT 18.1 mmol/L (22.0-26.0); BG METHEMOGLOBIN 0.3 % (0.0-1.5); BG OXYGEN SATURATION 97.2 % (92.0-98.5); BG OXYHEMOGLOBIN 96.6 % (94.0-97.0); BG PCO2 25.6 mmHg (35.0-45.0); BG PH 7.468 (7.350-7.450); BG PO2 101.5 mmHg (75.0-100.0); BG PRESSURE SUPPORT 8; BG SAMPLE SITE LEFT RADIAL; BG VENT MODE VENT - CPAP
[2019-08-10] MEDS: INSULIN LISPRO 100 UNITS/ML SUBCUT SCH ×3 (13:20→20:57)
[2019-08-10] MEDS ORDERED: LORAZEPAM 2MG/ML CPJ IV PRN (13:30)
[2019-08-10 17:04] LABS: INR 1.1; PARTIAL THROMBOPLASTIN TIME 29.8 sec (23.4-31.0); PROTHROMBIN TIME 11.1 sec (9.6-11.0)
[2019-08-10] MEDS: ATORVASTATIN CALCIUM 20MG TABLET PO SCH (20:57)
[2019-08-11] VITALS (39 sets, daily range): BP systolic 72–147; BP diastolic 28–69
[2019-08-11] MEDS: AZTREONAM 1 G in DEXTROSE 5% WATER 50 ML IV SCH ×2 (05:00→18:32)
[2019-08-11 06:53] LABS: EOSINOPHILS % 3.2 % (0.0-5.0); HEMATOCRIT. 27.2 % (36.0-48.0); HEMOGLOBIN. 9.4 g/dL (12.0-16.0); LYMPHOCYTES % 26.6 % (20.0-50.0); MEAN CORPUSCULAR HEMOGLOBIN 31.7 pg (28.0-32.0); MEAN CORPUSCULAR VOLUME 91.2 fL (81.0-99.0); MONOCYTES % 4.9 % (2.0-8.0); NEUTROPHILS % 64.3 % (40.0-76.0); RED BLOOD CELL COUNT 2.98 mill/uL (4.2-5.4)
[2019-08-11 07:00] LABS: CHLORIDE 114 mEq/L (98-107)
[2019-08-11] MEDS: BLOOD SUGAR DIAGNOSTIC STRIP TEST SCH ×4 (08:08→21:02)
[2019-08-11] MEDS: INSULIN LISPRO 100 UNITS/ML SUBCUT SCH ×4 (08:08→21:00)
[2019-08-11] MEDS: ASPIRIN 81MG TABLET PO SCH (08:09)
[2019-08-11] MEDS: PANTOPRAZOLE SODIUM 40 MG/VIAL IV SCH (08:09)
[2019-08-11] MEDS: MEMANTINE HCL 5MG TABLET PO SCH (08:22)
[2019-08-11] MEDS: CLOPIDOGREL 75MG TABLET PO SCH (08:22)
[2019-08-11] MEDS: AMLODIPINE 10MG TABLET PO SCH (08:22)
[2019-08-11] MEDS: ENOXAPARIN 40MG/0.4ML SYR SUBCUT SCH (08:24)
[2019-08-11] MEDS ORDERED: POTASSIUM CHLORIDE 20MEQ/PACKET NG SCH (08:45)
[2019-08-11] MEDS ORDERED: FUROSEMIDE 40MG/4ML VIAL IVP SCH (08:45)
[2019-08-11] MEDS ORDERED: ACETYLCYSTEINE 200MG/ML 20% VIAL 4ML INH PRN (08:45)
[2019-08-11 09:02] LABS: MEAN PLATELET VOLUME 10.2 fl (7.4-10.4); PLATELET 149 x1000/uL (130-400)
[2019-08-11] MEDS: IPRATROPIUM/ALBUTEROL 0.5-3(2.5)MG/3ML NEB HHN SCH ×4 (09:07→21:00)
[2019-08-11] MEDS: LEVETIRACETAM 250MG in SODIUM CHLORIDE 0.9% 100ML IV SCH ×2 (11:12→23:20)
[2019-08-11] MEDS: ATORVASTATIN CALCIUM 20MG TABLET PO SCH (22:33)
[2019-08-12] VITALS (12 sets, daily range): BP systolic 118–148; BP diastolic 43–96
[2019-08-12] MEDS: IPRATROPIUM/ALBUTEROL 0.5-3(2.5)MG/3ML NEB HHN SCH ×5 (00:42→20:11)
[2019-08-12] MEDS: AZTREONAM 1 G in DEXTROSE 5% WATER 50 ML IV SCH ×2 (05:18→17:11)
[2019-08-12 06:40] LABS: BASOPHILS % 0.6 % (0.0-2.0); EOSINOPHILS % 3.9 % (0.0-5.0); HEMOGLOBIN. 9.2 g/dL (12.0-16.0); LYMPHOCYTES % 29.4 % (20.0-50.0); MEAN CORPUSCULAR HEMOGLOBIN 31.2 pg (28.0-32.0); MEAN CORPUSCULAR VOLUME 91.6 fL (81.0-99.0); NEUTROPHILS % 59.1 % (40.0-76.0); PLATELET 177 x1000/uL (130-400); RED BLOOD CELL COUNT 2.95 mill/uL (4.2-5.4); RED CELL DISTRIBUTION WIDTH 14.9 % (11.6-14.6)
[2019-08-12 06:51] LABS: CHLORIDE 114 mEq/L (98-107)
[2019-08-12] MEDS: BLOOD SUGAR DIAGNOSTIC STRIP TEST SCH ×4 (06:59→20:44)
[2019-08-12] MEDS: INSULIN LISPRO 100 UNITS/ML SUBCUT SCH ×4 (07:20→20:44)
[2019-08-12] MEDS: PANTOPRAZOLE SODIUM 40 MG/VIAL IV SCH (09:07)
[2019-08-12] MEDS: CLOPIDOGREL 75MG TABLET PO SCH (09:10)
[2019-08-12] MEDS: AMLODIPINE 10MG TABLET PO SCH (09:10)
[2019-08-12] MEDS: ASPIRIN 81MG TABLET PO SCH (09:10)
[2019-08-12] MEDS: MEMANTINE HCL 5MG TABLET PO SCH (09:10)
[2019-08-12] MEDS: ENOXAPARIN 40MG/0.4ML SYR SUBCUT SCH (09:11)
[2019-08-12] MEDS: LEVETIRACETAM 250MG in SODIUM CHLORIDE 0.9% 100ML IV SCH ×2 (09:12→21:20)
[2019-08-12] MEDS: ATORVASTATIN CALCIUM 20MG TABLET PO SCH (20:55)
[2019-08-13] VITALS (12 sets, daily range): BP systolic 121–147; BP diastolic 45–74
[2019-08-13] MEDS: IPRATROPIUM/ALBUTEROL 0.5-3(2.5)MG/3ML NEB HHN SCH ×4 (02:16→20:45)
[2019-08-13] MEDS: BLOOD SUGAR DIAGNOSTIC STRIP TEST SCH ×4 (06:40→21:26)
[2019-08-13] MEDS: INSULIN LISPRO 100 UNITS/ML SUBCUT SCH ×4 (07:20→21:00)
[2019-08-13 07:32] LABS: BASOPHILS % 0.4 % (0.0-2.0); EOSINOPHILS % 3.2 % (0.0-5.0); HEMATOCRIT. 27.6 % (36.0-48.0); HEMOGLOBIN. 9.6 g/dL (12.0-16.0); LYMPHOCYTES % 29.2 % (20.0-50.0); MEAN CORPUSCULAR HEMOGLOBIN 31.8 pg (28.0-32.0); MEAN CORPUSCULAR VOLUME 91.5 fL (81.0-99.0); MEAN PLATELET VOLUME 8.3 fl (7.4-10.4); MONOCYTES % 7.7 % (2.0-8.0); NEUTROPHILS % 59.5 % (40.0-76.0); PLATELET 205 x1000/uL (130-400); RED BLOOD CELL COUNT 3.02 mill/uL (4.2-5.4)
[2019-08-13 07:50] LABS: CHLORIDE 113 mEq/L (98-107)
[2019-08-13] MEDS: CLOPIDOGREL 75MG TABLET PO SCH (08:33)
[2019-08-13] MEDS: MEMANTINE HCL 5MG TABLET PO SCH (08:33)
[2019-08-13] MEDS: ASPIRIN 81MG TABLET PO SCH (08:33)
[2019-08-13] MEDS: LEVETIRACETAM 250MG in SODIUM CHLORIDE 0.9% 100ML IV SCH ×2 (08:33→21:26)
[2019-08-13] MEDS: AMLODIPINE 10MG TABLET PO SCH (08:34)
[2019-08-13] MEDS: PANTOPRAZOLE SODIUM 40 MG/VIAL IV SCH (08:34)
[2019-08-13] MEDS: ENOXAPARIN 40MG/0.4ML SYR SUBCUT SCH (08:35)
[2019-08-13] MEDS ORDERED: BENZONATATE 100MG CAPSULE PO PRN (10:00)
[2019-08-13] MEDS: ATORVASTATIN CALCIUM 20MG TABLET PO SCH (21:26)
[2019-08-14] VITALS (12 sets, daily range): BP systolic 112–153; BP diastolic 45–91
[2019-08-14] MEDS: IPRATROPIUM/ALBUTEROL 0.5-3(2.5)MG/3ML NEB HHN SCH ×3 (01:07→12:33)
[2019-08-14] MEDS: BLOOD SUGAR DIAGNOSTIC STRIP TEST SCH ×4 (06:35→21:10)
[2019-08-14] MEDS: INSULIN LISPRO 100 UNITS/ML SUBCUT SCH ×4 (07:20→21:00)
[2019-08-14] MEDS ORDERED: FAMOTIDINE 20MG/2ML VIAL IV SCH (09:00)
[2019-08-14 09:11] LABS: BASOPHILS % 0.6 % (0.0-2.0); EOSINOPHILS % 3.1 % (0.0-5.0); HEMATOCRIT. 32.2 % (36.0-48.0); HEMOGLOBIN. 10.7 g/dL (12.0-16.0); LYMPHOCYTES % 32.2 % (20.0-50.0); MEAN CORPUSCULAR HEMOGLOBIN 31.1 pg (28.0-32.0); MEAN CORPUSCULAR VOLUME 93.4 fL (81.0-99.0); MEAN PLATELET VOLUME 8.4 fl (7.4-10.4); MONOCYTES % 5.3 % (2.0-8.0); NEUTROPHILS % 58.8 % (40.0-76.0); PLATELET 234 x1000/uL (130-400); RED BLOOD CELL COUNT 3.45 mill/uL (4.2-5.4); RED CELL DISTRIBUTION WIDTH 15.3 % (11.6-14.6)
[2019-08-14 09:15] LABS: CHLORIDE 111 mEq/L (98-107)
[2019-08-14] MEDS: AMLODIPINE 10MG TABLET PO SCH (09:23)
[2019-08-14] MEDS: ENOXAPARIN 40MG/0.4ML SYR SUBCUT SCH (09:23)
[2019-08-14] MEDS: LEVETIRACETAM 250MG in SODIUM CHLORIDE 0.9% 100ML IV SCH (09:24)
[2019-08-14] MEDS: MEMANTINE HCL 5MG TABLET PO SCH (09:24)
[2019-08-14] MEDS: ASPIRIN 81MG TABLET PO SCH (09:24)
[2019-08-14] MEDS: CLOPIDOGREL 75MG TABLET PO SCH (09:24)
[2019-08-14] MEDS ORDERED: POTASSIUM CHLORIDE 20MEQ TABLET SR PO NR (10:30)
[2019-08-14] MEDS ORDERED: LIDOCAINE 5% PATCH TOP SCH (13:00)
[2019-08-14] MEDS ORDERED: LEVETIRACETAM 250MG TABLET PO SCH (21:00)
[2019-08-14] MEDS: ATORVASTATIN CALCIUM 20MG TABLET PO SCH (21:10)
[2019-11-11] MEDS ORDERED: AMLO5TAB88 PO (18:13)
== END 2019-08-14 23:11 | DRG 871 ==
LOC: ER 01:36 → EDBEDREQ 02:10 → EDBEDREQTM 05:35 → EDBEDREQ 05:35 → EDBEDREQTM 07:38 → EDBEDREQSVC 07:38 → EDBEDREQ 07:38 → SUPCPDRO 14:19 → MICUSO 22:19 → CVICU 08-09 15:22 → 3WST 08-11 20:39
PROVIDERS: ADMIT Internal Medicine Nephrology; ATTEND Internal Medicine Nephrology
PROC: 5A1945Z Respiratory Ventilation, 24-96 Consecutive Hours (ICD-10-PCS; principal; 2019-08-07)
PROC: 0BH17EZ Insertion of Endotracheal Airway into Trachea, Via Natural or Artificial Opening (ICD-10-PCS; 2019-08-07)
PROC: 3E03317 Introduction of Other Thrombolytic into Peripheral Vein, Percutaneous Approach (ICD-10-PCS; 2019-08-07)
PROC: 05HY33Z Insertion of Infusion Device into Upper Vein, Percutaneous Approach (ICD-10-PCS; 2019-08-10)
PROC: B54MZZA Ultrasonography of Right Upper Extremity Veins, Guidance (ICD-10-PCS; 2019-08-10)
DX: A41.9 Sepsis, unspecified organism (principal); J96.00 Acute respiratory failure, unspecified whether with hypoxia or hypercapnia; J69.0 Pneumonitis due to inhalation of food and vomit; G93.40 Encephalopathy, unspecified; J84.9 Interstitial pulmonary disease, unspecified; M48.54XA Collapsed vertebra, not elsewhere classified, thoracic region, initial encounter for fracture; I42.9 Cardiomyopathy, unspecified; I50.42 Chronic combined systolic (congestive) and diastolic (congestive) heart failure; E11.9 Type 2 diabetes mellitus without complications; J44.9 Chronic obstructive pulmonary disease, unspecified; I65.22 Occlusion and stenosis of left carotid artery; E87.6 Hypokalemia; F03.90 Unspecified dementia, unspecified severity, without behavioral disturbance, psychotic disturbance, mood disturbance, and anxiety; G40.909 Epilepsy, unspecified, not intractable, without status epilepticus; I11.0 Hypertensive heart disease with heart failure; R91.8 Other nonspecific abnormal finding of lung field; Z20.828 Contact with and (suspected) exposure to other viral communicable diseases; R82.81 Pyuria; I25.10 Atherosclerotic heart disease of native coronary artery without angina pectoris; M40.204 Unspecified kyphosis, thoracic region; I35.0 Nonrheumatic aortic (valve) stenosis; I48.91 Unspecified atrial fibrillation; Z86.73 Personal history of transient ischemic attack (TIA), and cerebral infarction without residual deficits; I25.2 Old myocardial infarction; Z79.02 Long term (current) use of antithrombotics/antiplatelets; Z95.5 Presence of coronary angioplasty implant and graft; Z87.440 Personal history of urinary (tract) infections; Z88.0 Allergy status to penicillin; Z78.1 Physical restraint status
CPT/HCPCS: 36415; 36600; 70496; 70551; 71045; 71275; 76937; 80048; 80053; 80061; 81003; 82375; 82550; 82553; 82805; 82962; 83036; 83721; 83735; 83880; 84100; 84439; 84443; 84478; 84484; 85025; 85379; 87070; 92610; 93005; 93306; 93970; 94002; 94003; 94640; 95816; 96365; 97162; 97166; 99285; C1725; C9113; J0330; J1650; J1940; J1953; J2060; J2704; J2997; J3010; J3490; J7030; J7050; J7060; Q9967; C9803-CS; U0003-CS

== ENCOUNTER 2019-08-14 22:00 | Inpatient (IN) | payer MEDICARE ==
[~2019-08-14] VITALS: Ht 165.1 cm; Wt 80.4 kg
[2019-08-14 22:00] VITALS: BP 142/68
[2019-08-14 22:30] VITALS: BP 142/68
[2019-08-14] MEDS ORDERED: BENZONATATE 100MG CAPSULE PO PRN (23:00)
[2019-08-14] MEDS ORDERED: ACETYLCYSTEINE 200MG/ML 20% VIAL 4ML INH PRN ×2 (23:00→23:30)
[2019-08-14] MEDS ORDERED: IPRATROPIUM/ALBUTEROL 0.5-3(2.5)MG/3ML NEB HHN PRN (23:00)
[2019-08-14] MEDS ORDERED: LORAZEPAM 2MG/ML CPJ IV PRN (23:00)
[2019-08-14] MEDS ORDERED: DEXTROSE 50% WATER 50ML SYRINGE IV PRN (23:00)
[2019-08-14] MEDS: ACETAMINOPHEN 650MG/20.3ML UDC PO PRN ×2 (23:18→23:20)
[2019-08-14] MEDS: ACETAMINOPHEN 325MG TABLET PO PRN (23:26)
[2019-08-15] MEDS: BLOOD SUGAR DIAGNOSTIC STRIP TEST SCH ×5 (07:34→21:24)
[2019-08-15] MEDS: INSULIN LISPRO 100 UNITS/ML SUBCUT SCH ×4 (07:34→21:00)
[2019-08-15 08:00] VITALS: BP 150/56
[2019-08-15] MEDS: ACETAMINOPHEN 325MG TABLET PO PRN (09:12)
[2019-08-15] MEDS: FAMOTIDINE 20MG TABLET PO SCH (09:44)
[2019-08-15] MEDS: AMLODIPINE 10MG TABLET PO SCH (09:44)
[2019-08-15] MEDS: MEMANTINE HCL 5MG TABLET PO SCH (09:44)
[2019-08-15] MEDS: ENOXAPARIN 40MG/0.4ML SYR SUBCUT SCH (09:44)
[2019-08-15] MEDS: CLOPIDOGREL 75MG TABLET PO SCH (09:44)
[2019-08-15] MEDS: LEVETIRACETAM 250MG TABLET PO SCH ×2 (09:44→21:25)
[2019-08-15] MEDS: ASPIRIN 81MG TABLET PO SCH (09:45)
[2019-08-15] MEDS: IPRATROPIUM/ALBUTEROL 0.5-3(2.5)MG/3ML NEB HHN SCH ×3 (10:32→20:16)
[2019-08-15] MEDS: HYDROCODONE/ACETAMINOPHEN 5/325MG TABLET PO PRN (11:35)
[2019-08-15] MEDS ORDERED: LIDOCAINE 5% PATCH TOP SCH (13:00)
[2019-08-15] MEDS ORDERED: ONDANSETRON HCL 4MG TABLET PO PRN (13:45)
[2019-08-15] MEDS ORDERED: BISACODYL 5MG TABLET PO PRN (14:30)
[2019-08-15] MEDS: DOCUSATE SODIUM 100MG CAPSULE PO SCH ×2 (14:30→18:01)
[2019-08-15 20:00] VITALS: BP 121/56
[2019-08-15] MEDS: ATORVASTATIN CALCIUM 20MG TABLET PO SCH (21:25)
[2019-08-16] MEDS: IPRATROPIUM/ALBUTEROL 0.5-3(2.5)MG/3ML NEB HHN SCH ×4 (02:46→21:31)
[2019-08-16] MEDS: BLOOD SUGAR DIAGNOSTIC STRIP TEST SCH ×4 (07:01→20:33)
[2019-08-16] MEDS: INSULIN LISPRO 100 UNITS/ML SUBCUT SCH ×4 (07:01→20:35)
[2019-08-16 08:03] VITALS: BP 149/47
[2019-08-16] MEDS: LIDOCAINE 5% PATCH TOP SCH (08:39)
[2019-08-16] MEDS: FAMOTIDINE 20MG TABLET PO SCH (08:41)
[2019-08-16] MEDS: LEVETIRACETAM 250MG TABLET PO SCH ×2 (08:41→20:33)
[2019-08-16] MEDS: MEMANTINE HCL 5MG TABLET PO SCH (08:41)
[2019-08-16] MEDS: AMLODIPINE 10MG TABLET PO SCH (08:41)
[2019-08-16] MEDS: ASPIRIN 81MG TABLET PO SCH (08:41)
[2019-08-16] MEDS: CLOPIDOGREL 75MG TABLET PO SCH (08:41)
[2019-08-16] MEDS: ENOXAPARIN 40MG/0.4ML SYR SUBCUT SCH (08:41)
[2019-08-16] MEDS: HYDROCODONE/ACETAMINOPHEN 5/325MG TABLET PO PRN ×2 (08:46→14:01)
[2019-08-16] MEDS: DOCUSATE SODIUM 100MG CAPSULE PO SCH ×2 (08:46→16:29)
[2019-08-16] MEDS ORDERED: LIDOCAINE 5% PATCH TOP SCH (09:00)
[2019-08-16] MEDS ORDERED: LORAZEPAM 2MG/ML CPJ IV PRN (19:30)
[2019-08-16 20:00] VITALS: BP 116/42
[2019-08-16] MEDS: ATORVASTATIN CALCIUM 20MG TABLET PO SCH (20:33)
[2019-08-17] MEDS: IPRATROPIUM/ALBUTEROL 0.5-3(2.5)MG/3ML NEB HHN SCH ×5 (01:01→20:04)
[2019-08-17] MEDS: BLOOD SUGAR DIAGNOSTIC STRIP TEST SCH ×4 (06:22→20:23)
[2019-08-17] MEDS: HYDROCODONE/ACETAMINOPHEN 5/325MG TABLET PO PRN ×2 (07:08→14:21)
[2019-08-17 08:05] VITALS: BP 146/38
[2019-08-17] MEDS: INSULIN LISPRO 100 UNITS/ML SUBCUT SCH ×4 (09:00→20:23)
[2019-08-17] MEDS: LIDOCAINE 5% PATCH TOP SCH (10:05)
[2019-08-17] MEDS: ASPIRIN 81MG TABLET PO SCH (10:13)
[2019-08-17] MEDS: DOCUSATE SODIUM 100MG CAPSULE PO SCH ×2 (10:14→17:00)
[2019-08-17] MEDS: LEVETIRACETAM 250MG TABLET PO SCH ×2 (10:15→20:22)
[2019-08-17] MEDS: MEMANTINE HCL 5MG TABLET PO SCH (10:15)
[2019-08-17] MEDS: FAMOTIDINE 20MG TABLET PO SCH (10:16)
[2019-08-17] MEDS: AMLODIPINE 10MG TABLET PO SCH (10:16)
[2019-08-17] MEDS: ENOXAPARIN 40MG/0.4ML SYR SUBCUT SCH (10:17)
[2019-08-17] MEDS: CLOPIDOGREL 75MG TABLET PO SCH (10:17)
[2019-08-17 20:00] VITALS: BP 129/44
[2019-08-17] MEDS: ATORVASTATIN CALCIUM 20MG TABLET PO SCH (20:22)
[2019-08-18] MEDS: IPRATROPIUM/ALBUTEROL 0.5-3(2.5)MG/3ML NEB HHN SCH ×2 (02:09→09:50)
[2019-08-18 08:00] VITALS: BP 159/55
[2019-08-18 08:57] VITALS: BP 159/55
[2019-08-18] MEDS: LIDOCAINE 5% PATCH TOP SCH (08:57)
[2019-08-18] MEDS: ASPIRIN 81MG TABLET PO SCH (08:57)
[2019-08-18] MEDS: ENOXAPARIN 40MG/0.4ML SYR SUBCUT SCH (08:57)
[2019-08-18] MEDS: BLOOD SUGAR DIAGNOSTIC STRIP TEST SCH ×2 (08:57→11:35)
[2019-08-18] MEDS: AMLODIPINE 10MG TABLET PO SCH (08:58)
[2019-08-18] MEDS: INSULIN LISPRO 100 UNITS/ML SUBCUT SCH ×2 (08:58→11:35)
[2019-08-18] MEDS: FAMOTIDINE 20MG TABLET PO SCH (08:58)
[2019-08-18] MEDS: LEVETIRACETAM 250MG TABLET PO SCH (08:58)
[2019-08-18] MEDS: MEMANTINE HCL 5MG TABLET PO SCH (08:58)
[2019-08-18] MEDS: CLOPIDOGREL 75MG TABLET PO SCH (08:58)
[2019-08-18] MEDS: DOCUSATE SODIUM 100MG CAPSULE PO SCH (09:00)
== END 2019-08-18 13:29 | disposition left against medical advice (07) | DRG 189 ==
PROVIDERS: ADMIT Psychiatry & Neurology Neurology; ATTEND Internal Medicine Nephrology
DX: J96.00 Acute respiratory failure, unspecified whether with hypoxia or hypercapnia (principal); A41.9 Sepsis, unspecified organism; J69.0 Pneumonitis due to inhalation of food and vomit; I50.22 Chronic systolic (congestive) heart failure; M48.54XA Collapsed vertebra, not elsewhere classified, thoracic region, initial encounter for fracture; G93.40 Encephalopathy, unspecified; R53.81 Other malaise; M13.0 Polyarthritis, unspecified; E11.9 Type 2 diabetes mellitus without complications; E87.6 Hypokalemia; F03.90 Unspecified dementia, unspecified severity, without behavioral disturbance, psychotic disturbance, mood disturbance, and anxiety; I25.10 Atherosclerotic heart disease of native coronary artery without angina pectoris; I25.2 Old myocardial infarction; I11.0 Hypertensive heart disease with heart failure; G40.909 Epilepsy, unspecified, not intractable, without status epilepticus; F32.9 Major depressive disorder, single episode, unspecified; F41.9 Anxiety disorder, unspecified; K59.00 Constipation, unspecified; I35.0 Nonrheumatic aortic (valve) stenosis; Z86.73 Personal history of transient ischemic attack (TIA), and cerebral infarction without residual deficits; Z87.01 Personal history of pneumonia (recurrent); Z87.440 Personal history of urinary (tract) infections; Z95.5 Presence of coronary angioplasty implant and graft; Z88.0 Allergy status to penicillin; Z53.29 Procedure and treatment not carried out because of patient's decision for other reasons; J44.9 Chronic obstructive pulmonary disease, unspecified
CPT/HCPCS: 82962; 83036; 92523; 92610; 94640; 97110; 97161; 97166; 97530; 97535; J1650

== ENCOUNTER 2019-09-14 22:41 | Emergency (ER) | payer MEDICARE ==
[~2019-09-14] VITALS: Ht 175.3 cm; Wt 82.0 kg
[2019-09-14 23:00] VITALS: BP 156/60
[2019-09-14] MEDS ORDERED: ASPIRIN 81MG TABLET PO ONE (23:00)
[2019-09-14] MEDS ORDERED: MAGNESIUM/ALUMINUM HYDROXIDE/SIMETHICONE 30ML UDC PO ONE (23:15)
[2019-09-14 23:27] LABS: BASOPHILS % 0.6 % (0.0-2.0); EOSINOPHILS % 2.1 % (0.0-5.0); HEMATOCRIT. 35.8 % (36.0-48.0); LYMPHOCYTES % 37.2 % (20.0-50.0); MEAN CORPUSCULAR HEMOGLOBIN 32.3 pg (28.0-32.0); MEAN CORPUSCULAR VOLUME 96.2 fL (81.0-99.0); MEAN PLATELET VOLUME 8.1 fl (7.4-10.4); MONOCYTES % 6.6 % (2.0-8.0); NEUTROPHILS % 53.5 % (40.0-76.0); PLATELET 211 x1000/uL (130-400); RED BLOOD CELL COUNT 3.72 mill/uL (4.2-5.4); RED CELL DISTRIBUTION WIDTH 17.8 % (11.6-14.6)
[2019-09-14 23:29] LABS: CHLORIDE 112 mEq/L (98-107)
[2019-09-15] MEDS ORDERED: POTASSIUM CHLORIDE 20MEQ TABLET SR PO ONE (00:15)
== END 2019-09-15 01:00 | disposition home or self-care (01) ==
LOC: ER 22:41
DX: R07.89 Other chest pain (principal); E87.6 Hypokalemia; R03.0 Elevated blood-pressure reading, without diagnosis of hypertension; J44.9 Chronic obstructive pulmonary disease, unspecified; I51.9 Heart disease, unspecified; I25.2 Old myocardial infarction; Z79.899 Other long term (current) drug therapy
CPT/HCPCS: 36415; 71045; 80053; 83880; 84484; 85025; 93005; 99285

== ENCOUNTER 2019-10-19 13:03 | Inpatient (IN) | payer MEDICARE ==
[~2019-10-19] VITALS: Ht 172.7 cm; Wt 88.0 kg
[2019-10-19] MEDS ORDERED: SODIUM CHLORIDE 0.9% 1,000 ML IV ONE (13:45)
[2019-10-19 15:02] LABS: BASOPHILS % 0.3 % (0.0-2.0); CHLORIDE 111 mEq/L (98-107); EOSINOPHILS % 1.2 % (0.0-5.0); HEMATOCRIT. 35.2 % (36.0-48.0); LYMPHOCYTES % 25.6 % (20.0-50.0); MEAN CORPUSCULAR HEMOGLOBIN 32.3 pg (28.0-32.0); MONOCYTES % 5.1 % (2.0-8.0); NEUTROPHILS % 67.8 % (40.0-76.0); PLATELET 136 x1000/uL (130-400); RED BLOOD CELL COUNT 3.71 mill/uL (4.2-5.4); RED CELL DISTRIBUTION WIDTH 15.1 % (11.6-14.6)
[2019-10-19 15:09] LABS: INR 1.1; PARTIAL THROMBOPLASTIN TIME 30.6 sec (23.4-31.0); PROTHROMBIN TIME 11.9 sec (9.6-11.0)
[2019-10-19] MEDS ORDERED: POTASSIUM CHLORIDE 20MEQ TABLET SR PO ONE (15:30)
[2019-10-19] MEDS ORDERED: KCL 20MEQ/100ML PREMIX 100 ML IV ONE (15:30)
[2019-10-19] MEDS ORDERED: ACETAMINOPHEN 325MG TABLET PO PRN ×2 (20:30)
[2019-10-19] MEDS ORDERED: DIPHENHYDRAMINE 50MG/ML VIAL IV PRN (20:30)
[2019-10-19] MEDS ORDERED: ONDANSETRON HCL 4MG/2ML INJ IV PRN (20:30)
[2019-10-19] MEDS ORDERED: CLONIDINE 0.1MG TABLET PO PRN (20:30)
[2019-10-19] MEDS ORDERED: POTASSIUM CHLORIDE INJ 40 MEQ in DEXT 5% WATER 250 ML IV SCH (21:00)
[2019-10-19 21:05] VITALS: BP 155/58
[2019-10-19 21:08] LABS: CLARITY URINE TURBID (CLEAR); COLOR URINE ORANGE (YELLOW); KETONES URINE 1+ (NEGATIVE); LEUKOCYTE ESTERASE URINE 3+ (NEGATIVE); NITRITE URINE NEGATIVE (NEGATIVE); OCCULT BLOOD URINE 2+ (NEGATIVE); PROTEIN URINE 1+ (NEGATIVE); SPECIFIC GRAVITY URINE 1.016 (1.005-1.030)
[2019-10-19] MEDS: OXCARBAZEPINE 300MG TABLET PO SCH (23:05)
[2019-10-19] MEDS: SODIUM CHLORIDE 0.9% INJ 3ML FLUSH IVF SCH (23:06)
[2019-10-20] MEDS ORDERED: LEVOFLOXACIN 250MG PREMIX 50 ML IV SCH
[2019-10-20] MEDS ORDERED: MAGNESIUM 1 G PREMIX 100 ML IV SCH (02:00)
[2019-10-20 04:00] VITALS: BP 136/62
[2019-10-20] MEDS: SODIUM CHLORIDE 0.9% INJ 3ML FLUSH IVF SCH ×3 (05:29→22:34)
[2019-10-20 07:42] LABS: BASOPHILS % 0.4 % (0.0-2.0); EOSINOPHILS % 3.1 % (0.0-5.0); HEMATOCRIT. 35.5 % (36.0-48.0); HEMOGLOBIN. 11.9 g/dL (12.0-16.0); MEAN CORPUSCULAR HEMOGLOBIN 32.4 pg (28.0-32.0); MEAN CORPUSCULAR VOLUME 96.6 fL (81.0-99.0); MONOCYTES % 5.1 % (2.0-8.0); NEUTROPHILS % 61.4 % (40.0-76.0); PLATELET 132 x1000/uL (130-400); RED BLOOD CELL COUNT 3.67 mill/uL (4.2-5.4); RED CELL DISTRIBUTION WIDTH 14.8 % (11.6-14.6)
[2019-10-20 08:00] VITALS: BP 166/68
[2019-10-20 08:01] LABS: CHLORIDE 114 mEq/L (98-107)
[2019-10-20 08:13] LABS: PHOSPHORUS 2.2 mg/dL (2.5-4.9)
[2019-10-20] MEDS: OXCARBAZEPINE 300MG TABLET PO SCH ×2 (09:18→22:34)
[2019-10-20] MEDS: LOPERAMIDE HCL 2MG CAPSULE PO PRN (10:58)
[2019-10-20 12:00] VITALS: BP 148/61
[2019-10-20] MEDS ORDERED: POTASSIUM PHOS,M-BASIC-D-BASIC 20 MMOL in DEXT 5% WATER 243.3333 ML IV SCH (12:00)
[2019-10-20 16:00] VITALS: BP 158/67
[2019-10-20] MEDS ORDERED: POTASSIUM CHLORIDE 20MEQ TABLET SR PO NR (17:45)
[2019-10-20 20:00] VITALS: BP 147/54
[2019-10-21] VITALS (8 sets, daily range): BP systolic 140–168; BP diastolic 53–73
[2019-10-21] MEDS: SODIUM CHLORIDE 0.9% INJ 3ML FLUSH IVF SCH ×3 (06:24→21:55)
[2019-10-21] MEDS: LOPERAMIDE HCL 2MG CAPSULE PO PRN (09:00)
[2019-10-21] MEDS: OXCARBAZEPINE 300MG TABLET PO SCH ×2 (09:00→21:53)
[2019-10-21 09:46] LABS: LDL CHOLESTEROL 50 mg/dL (5-100)
[2019-10-21 09:49] LABS: CREATINE KINASE 24 IU/L (26-192); HDL CHOLESTEROL 46 mg/dL (40-59); T4 FREE 1.04 ng/dL (0.76-1.46)
[2019-10-21 09:51] LABS: CREATINE KINASE MB FRACTION < 1.0 ng/mL (0.5-3.6)
[2019-10-21] MEDS: CARVEDILOL 3.125 MG TABLET PO SCH (14:00)
[2019-10-21 23:35] LABS: CREATINE KINASE 24 IU/L (26-192)
[2019-10-21 23:36] LABS: CREATINE KINASE MB FRACTION < 1.0 ng/mL (0.5-3.6)
[2019-10-22] VITALS: BP 105/69
[2019-10-22 04:00] VITALS: BP 122/56
[2019-10-22] MEDS: SODIUM CHLORIDE 0.9% INJ 3ML FLUSH IVF SCH ×3 (06:41→21:53)
[2019-10-22 08:00] VITALS: BP 164/51
[2019-10-22] MEDS: CARVEDILOL 3.125 MG TABLET PO SCH (09:38)
[2019-10-22] MEDS: OXCARBAZEPINE 300MG TABLET PO SCH ×2 (09:38→21:52)
[2019-10-22] MEDS: APIXABAN 5 MG TABLET PO SCH (15:29)
[2019-10-22 16:00] VITALS: BP 130/53
[2019-10-22 20:00] VITALS: BP 139/56
[2019-10-23] VITALS (7 sets, daily range): BP systolic 132–167; BP diastolic 52–63
[2019-10-23] MEDS: SODIUM CHLORIDE 0.9% INJ 3ML FLUSH IVF SCH ×3 (06:08→21:18)
[2019-10-23] MEDS: OXCARBAZEPINE 300MG TABLET PO SCH ×2 (09:07→20:38)
[2019-10-23] MEDS: APIXABAN 5 MG TABLET PO SCH ×2 (09:07→18:42)
[2019-10-23] MEDS: ATORVASTATIN CALCIUM 20MG TABLET PO SCH (20:38)
[2019-10-24] VITALS (7 sets, daily range): BP systolic 96–158; BP diastolic 56–80
[2019-10-24] MEDS: SODIUM CHLORIDE 0.9% INJ 3ML FLUSH IVF SCH ×3 (06:16→21:28)
[2019-10-24] MEDS ORDERED: MEMANTINE HCL 5MG TABLET PO SCH (09:00)
[2019-10-24] MEDS: OXCARBAZEPINE 300MG TABLET PO SCH ×2 (09:24→21:27)
[2019-10-24] MEDS: APIXABAN 5 MG TABLET PO SCH ×2 (09:24→17:43)
[2019-10-24] MEDS: ATORVASTATIN CALCIUM 20MG TABLET PO SCH (21:27)
[2019-10-25] VITALS: BP 120/60
[2019-10-25 04:00] VITALS: BP 141/58
[2019-10-25] MEDS: SODIUM CHLORIDE 0.9% INJ 3ML FLUSH IVF SCH (06:20)
[2019-10-25 08:00] VITALS: BP 163/56
[2019-10-25] MEDS: APIXABAN 5 MG TABLET PO SCH (08:17)
[2019-10-25] MEDS: OXCARBAZEPINE 300MG TABLET PO SCH (08:17)
[2019-10-25 11:51] LABS: HEMATOCRIT 33.7 % (36.0-48.0); HEMOGLOBIN 11.3 g/dL (12.0-16.0); MEAN CORPUSCULAR HEMOGLOBIN 32.1 pg (28.0-32.0); MEAN CORPUSCULAR VOLUME 95.5 fL (81.0-99.0); PLATELET 174 x1000/uL (130-400); RED BLOOD CELL COUNT 3.52 mill/uL (4.2-5.4); RED CELL DISTRIBUTION WIDTH 14.5 % (11.6-14.6)
[2019-10-25 12:00] VITALS: BP 124/96
[2019-10-25 16:09] VITALS: BP 143/53
[2019-10-25 16:17] VITALS: BP 143/53
[2019-11-11] MEDS ORDERED: AMLO5TAB88 PO (18:13)
== END 2019-10-25 17:35 | disposition home health service (06) | DRG 100 ==
LOC: ER 13:03 → 8WST 15:49 → EDBEDREQ 15:52 → ENRESERV 18:57
PROVIDERS: ADMIT Internal Medicine; ATTEND Internal Medicine
DX: G40.409 Other generalized epilepsy and epileptic syndromes, not intractable, without status epilepticus (principal); I50.23 Acute on chronic systolic (congestive) heart failure; G93.41 Metabolic encephalopathy; I82.412 Acute embolism and thrombosis of left femoral vein; I42.9 Cardiomyopathy, unspecified; E44.0 Moderate protein-calorie malnutrition; K52.9 Noninfective gastroenteritis and colitis, unspecified; E87.6 Hypokalemia; I25.10 Atherosclerotic heart disease of native coronary artery without angina pectoris; E83.39 Other disorders of phosphorus metabolism; F03.90 Unspecified dementia, unspecified severity, without behavioral disturbance, psychotic disturbance, mood disturbance, and anxiety; I11.0 Hypertensive heart disease with heart failure; I35.0 Nonrheumatic aortic (valve) stenosis; I48.91 Unspecified atrial fibrillation; J44.9 Chronic obstructive pulmonary disease, unspecified; R62.7 Adult failure to thrive; E78.00 Pure hypercholesterolemia, unspecified; Z74.01 Bed confinement status; Z79.01 Long term (current) use of anticoagulants; Z86.73 Personal history of transient ischemic attack (TIA), and cerebral infarction without residual deficits; Z90.710 Acquired absence of both cervix and uterus; Z88.0 Allergy status to penicillin; Z68.29 Body mass index [BMI] 29.0-29.9, adult
CPT/HCPCS: 36415; 71045; 78582; 80053; 80061; 81003; 82040; 82550; 82553; 82962; 83036; 83735; 83880; 84100; 84134; 84439; 84443; 84484; 85025; 85027; 85379; 93005; 93306; 93970; 97162; 97166; 97530; 99285; A9558; J1956; J3475; J3480; J3490; J7030; J7060

== ENCOUNTER 2019-12-19 02:44 | Inpatient (IN) | payer MEDICARE, MEDICAID, OTHER ==
[~2019-12-19] VITALS: Ht 170.2 cm; Wt 83.5 kg
[~2019-12-19 02:44] MED LIST changes: -AMLO10TA80 PO; +AMLO5TAB88 PO; -MEMA5TAB7 PO
[2019-12-19] MEDS ORDERED: TRANEXAMIC ACID 1,000 MG/10 ML TP STA (03:05)
[2019-12-19] MEDS ORDERED: SODIUM CHLORIDE 0.9% 1,000 ML IV ONE (03:15)
[2019-12-19 03:54] LABS: BASOPHILS % 0.6 % (0.0-2.0); EOSINOPHILS % 1.4 % (0.0-5.0); HEMATOCRIT. 36.3 % (36.0-48.0); HEMOGLOBIN. 12.1 g/dL (12.0-16.0); LYMPHOCYTES % 42.7 % (20.0-50.0); MEAN CORPUSCULAR HEMOGLOBIN 32.1 pg (28.0-32.0); MEAN CORPUSCULAR VOLUME 96.2 fL (81.0-99.0); MONOCYTES % 4.5 % (2.0-8.0); NEUTROPHILS % 50.8 % (40.0-76.0); PLATELET 181 x1000/uL (130-400); RED BLOOD CELL COUNT 3.77 mill/uL (4.2-5.4)
[2019-12-19 03:58] LABS: CHLORIDE 109 mEq/L (98-107)
[2019-12-19 04:05] LABS: PROTHROMBIN TIME 73.6 sec (9.6-11.0)
[2019-12-19 04:42] LABS: INR 7.8
[2019-12-19 09:00] VITALS: BP 131/65
[2019-12-19 09:05] VITALS: BP 177/77
[2019-12-19] MEDS ORDERED: ENOX80DI8 SQ (11:18)
[2019-12-19] MEDS ORDERED: LAMO25TA9 PO (11:18)
[2019-12-19] MEDS ORDERED: ROSU5TAB PO (11:18)
[2019-12-19] MEDS ORDERED: AMLO5TAB88 PO (11:18)
[2019-12-19] MEDS ORDERED: WARF5TAB76 PO (11:18)
[2019-12-19] MEDS ORDERED: OXCA150T29 PO (11:18)
[2019-12-19 11:53] VITALS: BP 157/60
[2019-12-19] MEDS ORDERED: CLONIDINE 0.1MG TABLET PO PRN (12:00)
[2019-12-19] MEDS ORDERED: DIPHENHYDRAMINE 50MG/ML VIAL IV PRN (12:00)
[2019-12-19] MEDS ORDERED: ONDANSETRON HCL 4MG/2ML INJ IV PRN (12:00)
[2019-12-19] MEDS ORDERED: ACETAMINOPHEN 325MG TABLET PO PRN ×2 (12:00)
[2019-12-19] MEDS ORDERED: MAGNESIUM HYDROXIDE 400MG/5ML 30ML UDC PO PRN (12:00)
[2019-12-19] MEDS ORDERED: MAGNESIUM/ALUMINUM HYDROXIDE/SIMETHICONE 30ML UDC PO PRN (12:00)
[2019-12-19] MEDS ORDERED: POTASSIUM CHLORIDE 20MEQ/PACKET PO NR (12:00)
[2019-12-19] MEDS ORDERED: LAMOTRIGINE 25MG TABLET PO SCH (12:00)
[2019-12-19] MEDS: OXCARBAZEPINE 300MG TABLET PO SCH ×2 (13:21→20:57)
[2019-12-19] MEDS: AMLODIPINE 5MG TABLET PO SCH (13:22)
[2019-12-19] MEDS ORDERED: MVI, ADULT NO.1 10 ML, FOLIC ACID 1 MG, THIAMINE HCL 100 MG in SODIUM CHLORIDE 0.9% 1,0... IV SCH ×4 (14:00)
[2019-12-19 16:00] VITALS: BP 155/74
[2019-12-19 20:00] VITALS: BP 166/65
[2019-12-19] MEDS: FAMOTIDINE 20MG TABLET PO SCH (20:57)
[2019-12-19] MEDS: LAMOTRIGINE 25MG TABLET PO SCH (20:58)
[2019-12-19] MEDS ORDERED: ZOLPIDEM TARTRATE 5MG TABLET PO PRN (21:00)
[2019-12-20] VITALS (7 sets, daily range): BP systolic 116–164; BP diastolic 49–104
[2019-12-20 07:32] LABS: BASOPHILS % 0.6 % (0.0-2.0); EOSINOPHILS % 1.9 % (0.0-5.0); HEMATOCRIT. 29.4 % (36.0-48.0); HEMOGLOBIN. 9.9 g/dL (12.0-16.0); LYMPHOCYTES % 45.9 % (20.0-50.0); MEAN CORPUSCULAR HEMOGLOBIN 32.8 pg (28.0-32.0); MEAN CORPUSCULAR VOLUME 97.1 fL (81.0-99.0); MEAN PLATELET VOLUME 8.8 fl (7.4-10.4); NEUTROPHILS % 46.6 % (40.0-76.0); PLATELET 167 x1000/uL (130-400); RED BLOOD CELL COUNT 3.03 mill/uL (4.2-5.4)
[2019-12-20 07:44] LABS: CHLORIDE 115 mEq/L (98-107)
[2019-12-20 07:50] LABS: PHOSPHORUS 2.9 mg/dL (2.5-4.9)
[2019-12-20] MEDS: FAMOTIDINE 20MG TABLET PO SCH ×2 (08:32→21:12)
[2019-12-20] MEDS: AMLODIPINE 5MG TABLET PO SCH (08:32)
[2019-12-20] MEDS: LAMOTRIGINE 25MG TABLET PO SCH ×2 (08:33→17:11)
[2019-12-20] MEDS: OXCARBAZEPINE 300MG TABLET PO SCH ×2 (08:34→21:12)
[2019-12-21] VITALS: BP 144/62
[2019-12-21 04:00] VITALS: BP 130/59
[2019-12-21 06:06] LABS: INR 3.3; PROTHROMBIN TIME 32.9 sec (9.6-11.0)
[2019-12-21 06:21] LABS: CHLORIDE 115 mEq/L (98-107)
[2019-12-21 06:42] LABS: BASOPHILS % 0.5 % (0.0-2.0); EOSINOPHILS % 2.7 % (0.0-5.0); LYMPHOCYTES % 37.2 % (20.0-50.0); MEAN CORPUSCULAR HEMOGLOBIN 32.6 pg (28.0-32.0); MEAN PLATELET VOLUME 9.2 fl (7.4-10.4); MONOCYTES % 5.6 % (2.0-8.0); PLATELET 134 x1000/uL (130-400); RED BLOOD CELL COUNT 2.44 mill/uL (4.2-5.4)
[2019-12-21 06:57] LABS: HEMATOCRIT. 23.7 % (36.0-48.0)
[2019-12-21 08:00] VITALS: BP 140/37
[2019-12-21] MEDS: OXCARBAZEPINE 300MG TABLET PO SCH (09:55)
[2019-12-21] MEDS: LAMOTRIGINE 25MG TABLET PO SCH (09:55)
[2019-12-21] MEDS: AMLODIPINE 5MG TABLET PO SCH (09:56)
[2019-12-21] MEDS: FAMOTIDINE 20MG TABLET PO SCH (09:56)
[2019-12-21 12:00] VITALS: BP 144/66
[2019-12-21 14:51] VITALS: BP 146/53
[2019-12-21 16:00] VITALS: BP 141/45
== END 2019-12-21 17:10 | disposition home or self-care (01) | DRG 813 ==
LOC: ER 03:12 → EDBEDREQ 04:34 → 8WST 05:23 → EDBEDREQ 05:32 → ENRESERV 07:25
PROVIDERS: ADMIT Internal Medicine; ATTEND Internal Medicine
PROC: 30233M1 Transfusion of Nonautologous Plasma Cryoprecipitate into Peripheral Vein, Percutaneous Approach (ICD-10-PCS; principal; 2019-12-19)
DX: D68.9 Coagulation defect, unspecified (principal); I82.402 Acute embolism and thrombosis of unspecified deep veins of left lower extremity; G40.909 Epilepsy, unspecified, not intractable, without status epilepticus; S01.512A Laceration without foreign body of oral cavity, initial encounter; E87.6 Hypokalemia; X58.XXXA Exposure to other specified factors, initial encounter; F03.90 Unspecified dementia, unspecified severity, without behavioral disturbance, psychotic disturbance, mood disturbance, and anxiety; E78.00 Pure hypercholesterolemia, unspecified; I11.0 Hypertensive heart disease with heart failure; I50.9 Heart failure, unspecified; Z96.653 Presence of artificial knee joint, bilateral; I25.10 Atherosclerotic heart disease of native coronary artery without angina pectoris; Z79.01 Long term (current) use of anticoagulants; Z79.02 Long term (current) use of antithrombotics/antiplatelets; Z86.718 Personal history of other venous thrombosis and embolism; Z86.73 Personal history of transient ischemic attack (TIA), and cerebral infarction without residual deficits; Z90.710 Acquired absence of both cervix and uterus; Y93.89 Activity, other specified; Y92.89 Other specified places as the place of occurrence of the external cause; Y99.8 Other external cause status; Z79.899 Other long term (current) drug therapy
CPT/HCPCS: 36415; 71045; 80048; 80053; 83735; 84100; 85025; 86850; 86900; 86927; 93005; 93970; 99291; A6261; J3411; J3490; J7030; P9017

== ENCOUNTER 2020-07-06 06:09 | Inpatient (IN) | payer MEDICARE, OTHER ==
[~2020-07-06] VITALS: Ht 172.7 cm; Wt 75.4 kg
[~2020-07-06 06:09] MED LIST changes: +LAMO25TA9 PO; +ROSU5TAB PO
[2020-07-06 06:37] LABS: BASOPHILS % 0.6 % (0.0-2.0); EOSINOPHILS % 2.6 % (0.0-5.0); HEMATOCRIT. 38.1 % (36.0-48.0); HEMOGLOBIN. 12.5 g/dL (12.0-16.0); LYMPHOCYTES % 41.5 % (20.0-50.0); MEAN CORPUSCULAR HEMOGLOBIN 31.1 pg (28.0-32.0); MEAN CORPUSCULAR VOLUME 94.9 fL (81.0-99.0); MEAN PLATELET VOLUME 7.8 fl (7.4-10.4); MONOCYTES % 6.3 % (2.0-8.0); PLATELET 182 x1000/uL (130-400); RED BLOOD CELL COUNT 4.02 mill/uL (4.2-5.4); RED CELL DISTRIBUTION WIDTH 15.1 % (11.6-14.6)
[2020-07-06 06:42] LABS: CHLORIDE 109 mEq/L (98-107)
[2020-07-06 06:46] LABS: INR 1.6; PROTHROMBIN TIME 16.9 sec (9.6-11.0)
[2020-07-06 06:47] LABS: ETHANOL BLOOD < 10 mg/dL
[2020-07-06 06:50] LABS: LDL CHOLESTEROL 49 mg/dL (5-100)
[2020-07-06] MEDS ORDERED: POTASSIUM CHLORIDE INJ 40 MEQ in DEXT 5% WATER 250 ML IV SCH (07:15)
[2020-07-06] MEDS ORDERED: POTASSIUM CHLORIDE INJ 40 MEQ in DEXT 5% WATER 250 ML IV ONE (07:15)
[2020-07-06] MEDS ORDERED: LACTATED RINGERS 1,000 ML IV SCH (08:30)
[2020-07-06] MEDS ORDERED: LEVETIRACETAM 500MG PREMIX 100 ML IV NR (09:30)
[2020-07-06 10:31] LABS: CLARITY URINE CLOUDY (CLEAR); COLOR URINE YELLOW (YELLOW); KETONES URINE 2+ (NEGATIVE); LEUKOCYTE ESTERASE URINE 3+ (NEGATIVE); NITRITE URINE POSITIVE (NEGATIVE); OCCULT BLOOD URINE 1+ (NEGATIVE); PH URINE 5.5 (4.5-8.0); PROTEIN URINE 2+ (NEGATIVE); SPECIFIC GRAVITY URINE 1.048 (1.005-1.030)
[2020-07-06 10:43] LABS: *BARBITURATES SCREEN URINE NEGATIVE (NEGATIVE); *BENZODIAZEPINES SCREEN URINE NEGATIVE (NEGATIVE); *COCAINE SCREEN URINE NEGATIVE (NEGATIVE); METHADONE URINE SCREEN NEGATIVE (NEGATIVE)
[2020-07-06 10:44] LABS: *AMPHETAMINES SCREEN URINE NEGATIVE (NEGATIVE); CANNABINOID URINE SCREEN NEGATIVE (NEGATIVE); OPIATES URINE SCREEN NEGATIVE (NEGATIVE); PHENCYCLIDINE URINE SCREEN NEGATIVE (NEGATIVE)
[2020-07-06 12:00] VITALS: BP 134/74
[2020-07-06] MEDS ORDERED: LORAZEPAM 2MG/ML CPJ IV PRN (13:15)
[2020-07-06] MEDS ORDERED: ACETAMINOPHEN 325MG TABLET PO PRN ×2 (13:15)
[2020-07-06] MEDS ORDERED: POTASSIUM CHLORIDE 20MEQ TABLET SR PO NR ×2 (13:15→18:00)
[2020-07-06] MEDS ORDERED: MAGNESIUM HYDROXIDE 400MG/5ML 30ML UDC PO PRN (13:15)
[2020-07-06] MEDS ORDERED: ONDANSETRON HCL 4MG/2ML INJ IV PRN (13:15)
[2020-07-06] MEDS ORDERED: GUAIFENESIN 200MG/10ML SUGAR FREE UDC PO PRN (13:15)
[2020-07-06] MEDS ORDERED: MAGNESIUM/ALUMINUM HYDROXIDE/SIMETHICONE 30ML UDC PO PRN (13:15)
[2020-07-06] MEDS ORDERED: MAGNESIUM 2 G PREMIX 50 ML IV ONE (13:15)
[2020-07-06] MEDS ORDERED: DIPHENHYDRAMINE 50MG/ML VIAL IV PRN (13:15)
[2020-07-06] MEDS ORDERED: ENOXAPARIN 80MG/0.8ML SYR SUBCUT SCH (14:00)
[2020-07-06] MEDS: LAMOTRIGINE 25MG TABLET PO SCH (14:12)
[2020-07-06] MEDS: SODIUM CHLORIDE 0.9% INJ 3ML FLUSH IVF SCH ×2 (14:13→21:18)
[2020-07-06] MEDS ORDERED: LEVOFLOXACIN 500MG PREMIX 100 ML IV NR (15:00)
[2020-07-06 16:00] VITALS: BP 153/55
[2020-07-06] MEDS: DOCUSATE SODIUM 100MG CAPSULE PO SCH ×2 (17:00→17:15)
[2020-07-06 20:08] VITALS: BP 142/68
[2020-07-06] MEDS ORDERED: ZOLPIDEM TARTRATE 5MG TABLET PO PRN (21:00)
[2020-07-06] MEDS: ATORVASTATIN CALCIUM 10MG TABLET PO SCH (21:18)
[2020-07-06] MEDS: OXCARBAZEPINE 300MG TABLET PO SCH (21:18)
[2020-07-07] VITALS: BP 138/63
[2020-07-07 04:00] VITALS: BP 144/51
[2020-07-07] MEDS: SODIUM CHLORIDE 0.9% INJ 3ML FLUSH IVF SCH ×3 (06:09→21:01)
[2020-07-07 06:45] LABS: CHLORIDE 111 mEq/L (98-107)
[2020-07-07 08:00] VITALS: BP 145/54
[2020-07-07] MEDS: ENOXAPARIN 40MG/0.4ML SYR SUBCUT SCH (09:07)
[2020-07-07] MEDS: DOCUSATE SODIUM 100MG CAPSULE PO SCH ×2 (09:08→16:52)
[2020-07-07] MEDS: LAMOTRIGINE 25MG TABLET PO SCH ×2 (09:09→21:00)
[2020-07-07] MEDS: AMLODIPINE 5MG TABLET PO SCH (09:09)
[2020-07-07] MEDS: OXCARBAZEPINE 300MG TABLET PO SCH ×2 (09:09→21:01)
[2020-07-07] MEDS: CLOPIDOGREL 75MG TABLET PO SCH (09:09)
[2020-07-07] MEDS: NYSTATIN POWDER 15GM TOP SCH ×2 (09:10→16:52)
[2020-07-07] MEDS ORDERED: POTASSIUM CHLORIDE 20MEQ TABLET SR PO NR ×2 (10:15→16:15)
[2020-07-07] MEDS: LEVOFLOXACIN 250MG PREMIX 50 ML IV SCH (11:10)
[2020-07-07 12:00] VITALS: BP 161/68
[2020-07-07 16:00] VITALS: BP 138/54
[2020-07-07 20:42] VITALS: BP 168/77
[2020-07-07] MEDS: ATORVASTATIN CALCIUM 10MG TABLET PO SCH (21:00)
[2020-07-07] MEDS: CLONIDINE 0.1MG TABLET PO PRN (21:01)
[2020-07-08 00:26] VITALS: BP 147/69
[2020-07-08 04:40] VITALS: BP 130/55
[2020-07-08] MEDS: SODIUM CHLORIDE 0.9% INJ 3ML FLUSH IVF SCH ×3 (06:40→20:49)
[2020-07-08 08:14] VITALS: BP 138/52
[2020-07-08] MEDS: OXCARBAZEPINE 300MG TABLET PO SCH ×2 (08:54→20:48)
[2020-07-08] MEDS: CLOPIDOGREL 75MG TABLET PO SCH (08:54)
[2020-07-08] MEDS: AMLODIPINE 5MG TABLET PO SCH (08:54)
[2020-07-08] MEDS: DOCUSATE SODIUM 100MG CAPSULE PO SCH ×2 (08:54→18:00)
[2020-07-08] MEDS: LAMOTRIGINE 25MG TABLET PO SCH ×2 (08:54→18:00)
[2020-07-08] MEDS: ENOXAPARIN 40MG/0.4ML SYR SUBCUT SCH (08:55)
[2020-07-08] MEDS: NYSTATIN POWDER 15GM TOP SCH ×2 (08:56→18:00)
[2020-07-08] MEDS: LEVOFLOXACIN 250MG PREMIX 50 ML IV SCH (11:29)
[2020-07-08 12:06] VITALS: BP 131/49
[2020-07-08 16:03] VITALS: BP 140/50
[2020-07-08 20:17] VITALS: BP 167/67
[2020-07-08] MEDS: ATORVASTATIN CALCIUM 10MG TABLET PO SCH (20:48)
[2020-07-09 00:32] VITALS: BP 165/70
[2020-07-09] MEDS: CLONIDINE 0.1MG TABLET PO PRN (00:58)
[2020-07-09 04:00] VITALS: BP 142/58
[2020-07-09] MEDS: SODIUM CHLORIDE 0.9% INJ 3ML FLUSH IVF SCH ×3 (05:56→21:20)
[2020-07-09 08:00] VITALS: BP 123/72
[2020-07-09] MEDS: ENOXAPARIN 40MG/0.4ML SYR SUBCUT SCH (09:16)
[2020-07-09] MEDS: AMLODIPINE 5MG TABLET PO SCH (09:17)
[2020-07-09] MEDS: NYSTATIN POWDER 15GM TOP SCH ×2 (09:17→18:06)
[2020-07-09] MEDS: CLOPIDOGREL 75MG TABLET PO SCH (09:17)
[2020-07-09] MEDS: LAMOTRIGINE 25MG TABLET PO SCH ×2 (09:17→18:05)
[2020-07-09] MEDS: OXCARBAZEPINE 300MG TABLET PO SCH ×2 (09:17→20:15)
[2020-07-09] MEDS: DOCUSATE SODIUM 100MG CAPSULE PO SCH ×2 (09:17→18:05)
[2020-07-09] MEDS ORDERED: LEVOFLOXACIN 250MG TABLET PO SCH (11:00)
[2020-07-09 11:02] VITALS: BP 130/35
[2020-07-09 12:46] LABS: CHLORIDE 110 mEq/L (98-107)
[2020-07-09 12:57] LABS: T4 FREE 1.04 ng/dL (0.76-1.46)
[2020-07-09 16:00] VITALS: BP 139/61
[2020-07-09] MEDS: CEFTRIAXONE 1,000 MG in DEXTROSE 5% WATER 50 ML IV SCH (18:06)
[2020-07-09] MEDS: ATORVASTATIN CALCIUM 10MG TABLET PO SCH (20:12)
[2020-07-09 20:17] VITALS: BP 152/60
[2020-07-10 00:24] VITALS: BP 141/55
[2020-07-10 04:00] VITALS: BP 176/60
[2020-07-10] MEDS: SODIUM CHLORIDE 0.9% INJ 3ML FLUSH IVF SCH ×2 (05:14→14:00)
[2020-07-10 08:00] VITALS: BP 171/62
[2020-07-10] MEDS: NYSTATIN POWDER 15GM TOP SCH ×2 (08:51→16:36)
[2020-07-10] MEDS: CLOPIDOGREL 75MG TABLET PO SCH (08:51)
[2020-07-10] MEDS: LAMOTRIGINE 25MG TABLET PO SCH ×2 (08:51→16:36)
[2020-07-10] MEDS: OXCARBAZEPINE 300MG TABLET PO SCH (08:51)
[2020-07-10] MEDS: AMLODIPINE 5MG TABLET PO SCH (08:51)
[2020-07-10] MEDS: ENOXAPARIN 40MG/0.4ML SYR SUBCUT SCH (08:52)
[2020-07-10] MEDS: DOCUSATE SODIUM 100MG CAPSULE PO SCH (09:00)
[2020-07-10 12:00] VITALS: BP 127/39
[2020-07-10] MEDS: CEFTRIAXONE 1,000 MG in DEXTROSE 5% WATER 50 ML IV SCH (15:36)
[2020-07-10 15:44] VITALS: BP 152/54
[2020-07-10 16:00] VITALS: BP 152/54
[2020-08-01] MEDS ORDERED: ATOR20TA PO (08:49)
[2020-08-01] MEDS ORDERED: LAM25 PO (08:49)
== END 2020-07-10 17:10 | disposition home health service (06) | DRG 101 ==
LOC: ER 06:09 → 6WST 09:42 → EDBEDREQSVC 09:45 → EDBEDREQ 09:45 → EDBEDREQTM 09:45 → ENRESERV 11:14
PROVIDERS: ADMIT Internal Medicine; ATTEND Internal Medicine
PROC: 4A10X4Z Monitoring of Central Nervous Electrical Activity, External Approach (ICD-10-PCS; principal; 2020-07-08)
DX: G40.909 Epilepsy, unspecified, not intractable, without status epilepticus (principal); G45.9 Transient cerebral ischemic attack, unspecified; F05 Delirium due to known physiological condition; N39.0 Urinary tract infection, site not specified; I42.9 Cardiomyopathy, unspecified; I50.22 Chronic systolic (congestive) heart failure; I11.0 Hypertensive heart disease with heart failure; E87.6 Hypokalemia; F03.90 Unspecified dementia, unspecified severity, without behavioral disturbance, psychotic disturbance, mood disturbance, and anxiety; I25.10 Atherosclerotic heart disease of native coronary artery without angina pectoris; Z96.659 Presence of unspecified artificial knee joint; I35.0 Nonrheumatic aortic (valve) stenosis; I48.0 Paroxysmal atrial fibrillation; J44.9 Chronic obstructive pulmonary disease, unspecified; R29.6 Repeated falls; Z86.718 Personal history of other venous thrombosis and embolism; Z86.73 Personal history of transient ischemic attack (TIA), and cerebral infarction without residual deficits; Z90.710 Acquired absence of both cervix and uterus; Z98.61 Coronary angioplasty status; Z88.0 Allergy status to penicillin; Z79.899 Other long term (current) drug therapy; I25.2 Old myocardial infarction; R00.1 Bradycardia, unspecified
CPT/HCPCS: 36415; 70496; 70498; 71045; 71250; 80048; 80051; 80053; 80305; 80320; 81003; 82542; 83605; 83721; 83735; 83880; 84439; 84443; 84484; 85025; 87077; 87186; 92523; 93005; 93306; 93970; 95816; 97110; 97163; 97166; 97530; 97535; 99291; A6261; J0696; J1650; J1953; J1956; J3480; J7060; Q9967; G0480

== ENCOUNTER 2020-07-30 14:11 | Inpatient (IN) | payer MEDICARE, OTHER ==
[~2020-07-30] VITALS: Ht 172.7 cm; Wt 79.4 kg
[2020-07-30 16:26] LABS: BASOPHILS % 0.5 % (0.0-2.0); EOSINOPHILS % 2.1 % (0.0-5.0); HEMATOCRIT. 36.7 % (36.0-48.0); HEMOGLOBIN. 12.7 g/dL (12.0-16.0); LYMPHOCYTES % 44.1 % (20.0-50.0); MEAN CORPUSCULAR HEMOGLOBIN 32.1 pg (28.0-32.0); MEAN CORPUSCULAR VOLUME 92.9 fL (81.0-99.0); MEAN PLATELET VOLUME 8.3 fl (7.4-10.4); MONOCYTES % 5.5 % (2.0-8.0); NEUTROPHILS % 47.8 % (40.0-76.0); PLATELET 170 x1000/uL (130-400); RED BLOOD CELL COUNT 3.96 mill/uL (4.2-5.4); RED CELL DISTRIBUTION WIDTH 15.3 % (11.6-14.6)
[2020-07-30 16:33] LABS: CHLORIDE 107 mEq/L (98-107)
[2020-07-30 16:37] LABS: D-DIMER 0.4 mg/L FEU (<0.50); INR 1.9; PARTIAL THROMBOPLASTIN TIME 32.5 sec (23.4-31.0); PROTHROMBIN TIME 19.6 sec (9.6-11.0)
[2020-07-30] MEDS ORDERED: POTASSIUM CHLORIDE 20MEQ TABLET SR PO ONE (17:00)
[2020-07-30 20:30] VITALS: BP 167/89
[2020-07-30] MEDS ORDERED: ACETAMINOPHEN 325MG TABLET PO PRN (23:15)
[2020-07-30] MEDS ORDERED: POTASSIUM CHLORIDE 20MEQ/PACKET PO NR (23:30)
[2020-07-30] MEDS ORDERED: CLONIDINE 0.1MG TABLET PO PRN (23:45)
[2020-07-31] VITALS (7 sets, daily range): BP systolic 124–152; BP diastolic 40–80
[2020-07-31] MEDS ORDERED: WARF3TAB58 PO (01:58)
[2020-07-31] MEDS ORDERED: AMLO10TA80 PO (01:59)
[2020-07-31] MEDS: AMLODIPINE 10MG TABLET PO SCH (09:17)
[2020-07-31] MEDS: OXCARBAZEPINE 300MG TABLET PO SCH (09:17)
[2020-07-31 10:02] LABS: BASOPHILS % 0.7 % (0.0-2.0); EOSINOPHILS % 2.6 % (0.0-5.0); HEMATOCRIT. 35.5 % (36.0-48.0); HEMOGLOBIN. 12.2 g/dL (12.0-16.0); MEAN CORPUSCULAR HEMOGLOBIN 32.4 pg (28.0-32.0); MEAN CORPUSCULAR VOLUME 94.5 fL (81.0-99.0); MEAN PLATELET VOLUME 8.2 fl (7.4-10.4); NEUTROPHILS % 46.7 % (40.0-76.0); PLATELET 148 x1000/uL (130-400); RED BLOOD CELL COUNT 3.75 mill/uL (4.2-5.4); RED CELL DISTRIBUTION WIDTH 15.8 % (11.6-14.6)
[2020-07-31 10:10] LABS: INR 2.3; PROTHROMBIN TIME 23.3 sec (9.6-11.0)
[2020-07-31 10:15] LABS: CHLORIDE 109 mEq/L (98-107)
[2020-07-31] MEDS ORDERED: DIPHENOXYLATE/ATROPINE 2.5/0.025MG TABLET PO SCH (13:15)
[2020-07-31] MEDS ORDERED: LIDOCAINE 5% PATCH TOP PRN (13:15)
[2020-07-31] MEDS ORDERED: POTASSIUM CHLORIDE 20MEQ TABLET SR PO SCH (13:30)
[2020-07-31] MEDS ORDERED: WARFARIN SODIUM 3MG TABLET PO SCH (18:00)
[2020-07-31] MEDS: LAMOTRIGINE 25MG TABLET PO SCH (20:49)
[2020-07-31] MEDS ORDERED: ATORVASTATIN CALCIUM 20MG TABLET PO SCH (21:00)
[2020-08-01] VITALS: BP 144/53
[2020-08-01 04:00] VITALS: BP 149/50
[2020-08-01 08:12] VITALS: BP 145/58
[2020-08-01] MEDS ORDERED: ATOR20TA PO (08:49)
[2020-08-01] MEDS ORDERED: LAM25 PO (08:49)
[2020-08-01] MEDS: OXCARBAZEPINE 300MG TABLET PO SCH (09:26)
[2020-08-01] MEDS: LAMOTRIGINE 25MG TABLET PO SCH (09:26)
[2020-08-01] MEDS: AMLODIPINE 10MG TABLET PO SCH (09:26)
[2020-08-01] MEDS ORDERED: CLOPIDOGREL 75MG TABLET PO SCH (10:00)
[2020-08-01 12:19] VITALS: BP 128/58
[2020-08-01 14:30] VITALS: BP 128/58
[2020-08-01 16:08] VITALS: BP 134/54
== END 2020-08-01 19:10 | disposition home or self-care (01) | DRG 243 ==
LOC: ER 14:11 → 6WST 18:04 → EDBEDREQ 18:06 → EDBEDREQTM 18:06 → ENRESERV 19:35
PROVIDERS: ADMIT Family Medicine; ATTEND Family Medicine
DX: K21.9 Gastro-esophageal reflux disease without esophagitis (principal); G40.409 Other generalized epilepsy and epileptic syndromes, not intractable, without status epilepticus; I11.0 Hypertensive heart disease with heart failure; I50.22 Chronic systolic (congestive) heart failure; I42.9 Cardiomyopathy, unspecified; F03.90 Unspecified dementia, unspecified severity, without behavioral disturbance, psychotic disturbance, mood disturbance, and anxiety; I48.0 Paroxysmal atrial fibrillation; I25.10 Atherosclerotic heart disease of native coronary artery without angina pectoris; E87.6 Hypokalemia; M94.0 Chondrocostal junction syndrome [Tietze]; I25.2 Old myocardial infarction; I35.0 Nonrheumatic aortic (valve) stenosis; R00.1 Bradycardia, unspecified; R07.89 Other chest pain; I45.10 Unspecified right bundle-branch block; J44.9 Chronic obstructive pulmonary disease, unspecified; R29.6 Repeated falls; Z86.73 Personal history of transient ischemic attack (TIA), and cerebral infarction without residual deficits; Z95.5 Presence of coronary angioplasty implant and graft; Z88.0 Allergy status to penicillin; Z79.899 Other long term (current) drug therapy
CPT/HCPCS: 36415; 71045; 80053; 83880; 84484; 85025; 85379; 93005; 93306; 97162; 97166; 99285

== ENCOUNTER 2021-05-29 05:36 | Inpatient (IN) | payer MEDICARE, OTHER ==
[~2021-05-29] VITALS: Ht 172.7 cm; Wt 73.5 kg
[~2021-05-29 05:36] MED LIST changes: -AMLO5TAB88 PO; +ATOR20TA PO; -CLOP75TA33 PO; +LAM25 PO; -LAMO25TA9 PO; -OXCA150T29 PO; -ROSU5TAB PO
[2021-05-29 08:17] LABS: BASOPHILS % 0.4 % (0.0-2.0); EOSINOPHILS % 0.6 % (0.0-5.0); HEMATOCRIT. 43.8 % (36.0-48.0); HEMOGLOBIN. 14.5 g/dL (12.0-16.0); LYMPHOCYTES % 28.6 % (20.0-50.0); MEAN CORPUSCULAR HEMOGLOBIN 32.1 pg (28.0-32.0); MEAN CORPUSCULAR VOLUME 97.1 fL (81.0-99.0); MEAN PLATELET VOLUME 8.7 fl (7.4-10.4); MONOCYTES % 3.8 % (2.0-8.0); NEUTROPHILS % 66.6 % (40.0-76.0); PLATELET 183 x1000/uL (130-400); RED BLOOD CELL COUNT 4.51 mill/uL (4.2-5.4); RED CELL DISTRIBUTION WIDTH 14.3 % (11.6-14.6)
[2021-05-29 08:22] LABS: CHLORIDE 106 mEq/L (98-107)
[2021-05-29 08:25] LABS: ETHANOL BLOOD < 10 mg/dL
[2021-05-29] MEDS ORDERED: FUROSEMIDE 20MG/2ML VIAL IVP SCH (09:15)
[2021-05-29 13:11] LABS: *BARBITURATES SCREEN URINE NEGATIVE (NEGATIVE)
[2021-05-29 13:12] LABS: *AMPHETAMINES SCREEN URINE NEGATIVE (NEGATIVE); *COCAINE SCREEN URINE NEGATIVE (NEGATIVE); CANNABINOID URINE SCREEN NEGATIVE (NEGATIVE); METHADONE URINE SCREEN NEGATIVE (NEGATIVE); OPIATES URINE SCREEN NEGATIVE (NEGATIVE); PHENCYCLIDINE URINE SCREEN NEGATIVE (NEGATIVE)
[2021-05-29 13:16] LABS: *BENZODIAZEPINES SCREEN URINE NEGATIVE (NEGATIVE)
[2021-05-29] MEDS ORDERED: MAGNESIUM/ALUMINUM HYDROXIDE/SIMETHICONE 30ML UDC PO PRN (15:30)
[2021-05-29] MEDS ORDERED: CLONIDINE 0.1MG TABLET PO PRN (15:30)
[2021-05-29] MEDS ORDERED: ACETAMINOPHEN 325MG TABLET PO PRN ×2 (15:30)
[2021-05-29] MEDS ORDERED: ONDANSETRON HCL 4MG/2ML INJ IV PRN (15:30)
[2021-05-29] MEDS ORDERED: TRAMADOL 50MG TABLET PO PRN (15:30)
[2021-05-29] MEDS ORDERED: NITROGLYCERIN 0.4MG TABLET SL SL PRN (15:30)
[2021-05-29] MEDS ORDERED: GUAIFENESIN 200MG/10ML SUGAR FREE UDC PO PRN (15:30)
[2021-05-29] MEDS ORDERED: IPRATROPIUM/ALBUTEROL 0.5-3(2.5)MG/3ML NEB NEB PRN (15:30)
[2021-05-29 16:22] VITALS: BP 141/65
[2021-05-29 16:26] VITALS: BP 141/65
[2021-05-29 16:39] LABS: FOLIC ACID (FOLATE) SERUM 16.2 ng/mL (>5.38)
[2021-05-29] MEDS ORDERED: DOCUSATE SODIUM 100MG CAPSULE PO PRN (17:00)
[2021-05-29] MEDS ORDERED: NALOXONE HCL 0.4MG/ML VIAL IV PRN (17:30)
[2021-05-29] MEDS: DILTIAZEM HCL 30MG TABLET PO SCH (18:00)
[2021-05-29 20:00] VITALS: BP 119/65
[2021-05-29] MEDS: ASCORBIC ACID 500 MG TABLET PO SCH (20:57)
[2021-05-29] MEDS: FAMOTIDINE 20MG TABLET PO SCH (20:58)
[2021-05-29] MEDS: SPIRONOLACTONE 25MG TABLET PO SCH (20:58)
[2021-05-29] MEDS: ENOXAPARIN 40MG/0.4ML SYR SUBCUT SCH (20:58)
[2021-05-29] MEDS: FUROSEMIDE 40MG/4ML VIAL IVP SCH (21:00)
[2021-05-29] MEDS ORDERED: ZOLPIDEM TARTRATE 5MG TABLET PO PRN (21:00)
[2021-05-30] VITALS: BP 122/70
[2021-05-30] MEDS: DILTIAZEM HCL 30MG TABLET PO SCH ×5 (06:00→23:44)
[2021-05-30 08:00] VITALS: BP 138/78
[2021-05-30] MEDS ORDERED: LEVOFLOXACIN 750MG PREMIX 150 ML IV SCH (09:00)
[2021-05-30] MEDS: ZINC SULFATE 220 MG ( 50 ) CAPSULE PO SCH (09:57)
[2021-05-30] MEDS: SPIRONOLACTONE 25MG TABLET PO SCH ×2 (09:58→21:13)
[2021-05-30] MEDS: CHOLECALCIFEROL (D3) 1000 UNIT TABLET PO SCH (09:58)
[2021-05-30] MEDS: FUROSEMIDE 40MG/4ML VIAL IVP SCH ×2 (09:59→21:00)
[2021-05-30] MEDS: ASPIRIN 325MG EC TABLET PO SCH (09:59)
[2021-05-30] MEDS: FAMOTIDINE 20MG TABLET PO SCH ×2 (09:59→21:12)
[2021-05-30] MEDS: ASCORBIC ACID 500 MG TABLET PO SCH ×2 (09:59→21:13)
[2021-05-30 10:42] LABS: MEAN CORPUSCULAR VOLUME 95.9 fL (81.0-99.0); MEAN PLATELET VOLUME 8.9 fl (7.4-10.4); PLATELET 195 x1000/uL (130-400); RED BLOOD CELL COUNT 4.38 mill/uL (4.2-5.4); RED CELL DISTRIBUTION WIDTH 14.4 % (11.6-14.6)
[2021-05-30 10:52] LABS: CHLORIDE 108 mEq/L (98-107)
[2021-05-30 10:59] LABS: CREATINE KINASE 34 IU/L (26-192); CREATINE KINASE MB FRACTION 1.2 ng/mL (0.5-3.6); PHOSPHORUS 2.8 mg/dL (2.5-4.9)
[2021-05-30 12:00] VITALS: BP 123/74
[2021-05-30 16:00] VITALS: BP 134/65
[2021-05-30 16:00] LABS: PLATELET ESTIMATE NORMAL
[2021-05-30 20:00] VITALS: BP 132/69
[2021-05-30] MEDS: ENOXAPARIN 40MG/0.4ML SYR SUBCUT SCH (21:15)
[2021-05-31] VITALS: BP 133/57
[2021-05-31 04:00] VITALS: BP 135/65
[2021-05-31] MEDS: DILTIAZEM HCL 30MG TABLET PO SCH ×3 (06:00→18:00)
[2021-05-31 08:00] VITALS: BP 129/52
[2021-05-31] MEDS: CHOLECALCIFEROL (D3) 1000 UNIT TABLET PO SCH (08:52)
[2021-05-31] MEDS: ZINC SULFATE 220 MG ( 50 ) CAPSULE PO SCH (08:52)
[2021-05-31] MEDS: ASCORBIC ACID 500 MG TABLET PO SCH ×2 (08:52→21:26)
[2021-05-31] MEDS: ASPIRIN 325MG EC TABLET PO SCH (08:52)
[2021-05-31] MEDS: FAMOTIDINE 20MG TABLET PO SCH ×2 (08:52→21:27)
[2021-05-31] MEDS: FUROSEMIDE 40MG/4ML VIAL IVP SCH ×2 (08:53→21:27)
[2021-05-31] MEDS: SPIRONOLACTONE 25MG TABLET PO SCH ×2 (08:53→21:26)
[2021-05-31] MEDS: LEVOFLOXACIN 500MG PREMIX 100 ML IV SCH (11:31)
[2021-05-31 12:00] VITALS: BP 147/98
[2021-05-31 16:21] VITALS: BP 139/78
[2021-05-31 20:35] VITALS: BP 113/61
[2021-05-31] MEDS: ENOXAPARIN 40MG/0.4ML SYR SUBCUT SCH (21:27)
[2021-06-01 00:16] VITALS: BP 141/71
[2021-06-01 04:00] VITALS: BP 136/77
[2021-06-01] MEDS: DILTIAZEM HCL 30MG TABLET PO SCH ×3 (06:00→12:00)
[2021-06-01 08:00] VITALS: BP 147/63
[2021-06-01] MEDS: FUROSEMIDE 40MG/4ML VIAL IVP SCH (09:00)
[2021-06-01] MEDS: ZINC SULFATE 220 MG ( 50 ) CAPSULE PO SCH (09:04)
[2021-06-01] MEDS: FAMOTIDINE 20MG TABLET PO SCH (09:04)
[2021-06-01] MEDS: ASCORBIC ACID 500 MG TABLET PO SCH (09:04)
[2021-06-01] MEDS: CHOLECALCIFEROL (D3) 1000 UNIT TABLET PO SCH (09:04)
[2021-06-01] MEDS: ASPIRIN 325MG EC TABLET PO SCH (09:04)
[2021-06-01] MEDS: SPIRONOLACTONE 25MG TABLET PO SCH (09:04)
[2021-06-01] MEDS: LEVOFLOXACIN 500MG PREMIX 100 ML IV SCH (11:46)
[2021-06-01 12:00] VITALS: BP 157/76
[2021-06-01 16:00] VITALS: BP 148/73
[2021-06-01 16:01] VITALS: BP 148/73
== END 2021-06-01 17:30 | DRG 291 ==
LOC: ER 05:36 → 7EST 13:11 → ENRESERV 15:18 → SUPCPDRO 15:28
PROVIDERS: ADMIT Internal Medicine; ATTEND Internal Medicine
DX: I11.0 Hypertensive heart disease with heart failure (principal); J18.9 Pneumonia, unspecified organism; I50.33 Acute on chronic diastolic (congestive) heart failure; F03.90 Unspecified dementia, unspecified severity, without behavioral disturbance, psychotic disturbance, mood disturbance, and anxiety; I25.10 Atherosclerotic heart disease of native coronary artery without angina pectoris; F32.A Depression, unspecified; F41.9 Anxiety disorder, unspecified; M19.90 Unspecified osteoarthritis, unspecified site; J45.909 Unspecified asthma, uncomplicated; I25.2 Old myocardial infarction; Z95.5 Presence of coronary angioplasty implant and graft; Z88.0 Allergy status to penicillin; Z79.899 Other long term (current) drug therapy; Z86.73 Personal history of transient ischemic attack (TIA), and cerebral infarction without residual deficits; Z87.891 Personal history of nicotine dependence
CPT/HCPCS: 36415; 71045; 80053; 80061; 80305; 80320; 82550; 82553; 82607; 82746; 83036; 83540; 83550; 83735; 83880; 84100; 84145; 84443; 84484; 85025; 93005; 93306; 93970; 99285; C1893; J1650; J1940; J1956; G0480